=== PATIENT | female | born 1995 | race Caucasian/White ===

== ENCOUNTER 2019-10-05 15:11 | Emergency (ER) | payer BC ==
[2019-10-05] MEDS ORDERED: ACETAMINOPHEN 325 MG TABLET PO ONE (15:47)
--- NOTE | 2019-10-05 15:49 | ER Document Report ---
HPI - HPI Patient complains to provider of: sore throat Time Seen by Provider: 10/05/19 15:43 Onset: This morning Onset/Duration: Gradual Quality of pain: Achy Pain Level: 3 Context: Patient presents complaint of sore throat that started today. Patient denies any fever or cough. No nausea or vomiting. Associated Symptoms: Sore throat. denies: Nonproductive cough, Earache, Fever Exacerbated by: Denies Relieved by: Denies Similar symptoms previously: Yes Recently seen / treated by doctor: No - ROS ROS below otherwise negative: Yes Systems Reviewed and Negative: Yes All other systems reviewed and negative - CONSTITUTIONAL Constitutional: DENIES: Fever, Chills - EENT EENT: REPORTS: Sore Throat. DENIES: Ear Pain, Congestion - CARDIOVASCULAR Cardiovascular: DENIES: Chest pain - RESPIRATORY Respiratory: DENIES: Trouble Breathing, Coughing - GASTROINTESTINAL Gastrointestinal: DENIES: Nausea, Patient vomiting, Diarrhea - DERM Skin Color: Normal Skin Problems: None Past Medical History - General Information source: Patient - Social History Smoking Status: Never Smoker Frequency of alcohol use: Occasional Drug Abuse: None Occupation: Patient access Family History: Reviewed & Not Pertinent - Past Medical History Cardiac Medical History: Reports: Hx Hypertension Past Surgical History: Reports: Hx Oral Surgery, Hx Orthopedic Surgery Vertical Provider Document - CONSTITUTIONAL Agree With Documented VS: Yes Exam Limitations: No Limitations General Appearance: WD/WN, No Apparent Distress - HEENT HEENT: Atraumatic, Normocephalic, Pharyngeal Exudate, Pharyngeal Tenderness, Pharyngeal Erythema - NECK Neck: Lymphadenopathy-Left, Lymphadenopathy-Right - RESPIRATORY Respiratory: Breath Sounds Normal, No Respiratory Distress - CARDIOVASCULAR Cardiovascular: Regular Rate, Regular Rhythm - BACK Back: Normal Inspection - MUSCULOSKELETAL/EXTREMETIES Musculoskeletal/Extremeties: MAEW - NEURO Level of Consciousness: Awake, Alert, Appropriate Motor/Sensory: No Motor Deficit - DERM Integumentary: Warm, Dry, No Rash Course - Re-evaluation Re-evalutation: 10/05/19 16:57 Patient rapid strep test positive, no concern for [employer]. Patient able to manage oral secretions. Good return precautions discussed with patient. - Vital Signs Vital signs: Temp Pulse Resp BP Pulse Ox 98.3 F 104 H 15 143/101 H 94 10/05/19 15:17 10/05/19 15:17 10/05/19 15:17 10/05/19 15:17 10/05/19 15:17 - Laboratory Laboratory results interpreted by me: 10/05/19 16:57 Labs- Entire Visit 10/05/19 10/05/19 16:08 16:21 Monotest NEGATIVE Group A Strep Rapid POSITIVE Discharge - Discharge Clinical Impression: Strep pharyngitis Condition: Stable Disposition: HOME, SELF-CARE Instructions: Acetaminophen, Strep Throat ([facility]), Antibiotic Shot ([facility]), Steroid Medication Additional Instructions: Return immediately for any new or worsening symptoms Followup with your primary care provider, call tomorrow to make a followup appointment You may take Tylenol [id number] as needed for pain relief Increase oral fluids and stay well-hydrated Forms: Return to Work Referrals: SANTOSH MANLEY PA-C [NO LOCAL MD] - Follow up as needed
[2019-10-05] MEDS ORDERED: DEXAMETHASONE 4 MG TABLET PO ONE (16:56)
[2019-10-05] MEDS ORDERED: PENICILLIN G BENZATHINE 1.2 MILLION UNIT/2 ML DISP.SYRIN IM ONE (16:56)
[2019-10-05 17:18] VITALS: BP 127/87
== END 2019-10-05 17:28 | disposition home or self-care (01) ==
LOC: ER 15:11
DX: J02.0 Streptococcal pharyngitis (principal)
CPT/HCPCS: 99283; 96372; 36415; 87880; 86308; J8540; J0561

== ENCOUNTER 2020-04-11 11:12 | Inpatient (IN) | payer BC ==
[2020-04-11] MEDS ORDERED: NORMAL SALINE 1000 ML 1,000 ML IV ONE (11:49)
[2020-04-11] MEDS ORDERED: RINGERS SOLUTION,LACTATED 2,000 ML IV ONE (11:51)
--- NOTE | 2020-04-11 11:53 | ER Document Report ---
ED Medical Screen (RME) - General Chief Complaint: Abdominal Pain Stated Complaint: LOW BACK PAIN,ABDOMINAL PAIN Time Seen by Provider: 04/11/20 11:44 Primary Care Provider: SANTOSH MANLEY PA-C [Primary Care Provider] - Follow up as needed Notes: Patient is a 24-year-old female with a history of hypertension who presents emergency department with a chief complaint of left sided abdominal pain. Patient states that her symptoms started a couple days ago and got progressively worse. Denies any nausea, vomiting, or diarrhea. States that she has a slight sore throat. Denies any abdominal surgeries in the past. Exam: Tender left mid abdomen. I have greeted and performed a rapid initial assessment of this patient. A comprehensive ED assessment and evaluation of the patient, analysis of test results and completion of medical decision making process will be conducted by an additional ED providers. - Related Data Allergies/Adverse Reactions: azithromycin Allergy (Verified 04/11/20 11:44) Home Medications: LABETOLOL. LISINOPRIL Past Medical History - Social History Chew tobacco use (# tins/day): No Frequency of alcohol use: Social Drug Abuse: None - Past Medical History Cardiac Medical History: Reports: Hx Hypertension Past Surgical History: Reports: Hx Oral Surgery, Hx Orthopedic Surgery Physical Exam - Vital signs Vitals: Temp Pulse Resp BP Pulse Ox 98.2 F 152 H 18 141/77 H 100 04/11/20 11:18 04/11/20 11:18 04/11/20 11:18 04/11/20 11:18 04/11/20 11:18 Course - Vital Signs Vital signs: Temp Pulse Resp BP Pulse Ox 98.2 F 152 H 18 141/77 H 100 04/11/20 11:18 04/11/20 11:18 04/11/20 11:18 04/11/20 11:18 04/11/20 11:18 Doctor's Discharge - Discharge Referrals: SANTOSH MANLEY PA-C [Primary Care Provider] - Follow up as needed
[2020-04-11 12:37] LABS: ABSOLUTE LYMPHOCYTES (AUTO) 1.5 10^3/uL (0.5-4.7); ABSOLUTE MONOCYTES (AUTO) 0.9 10^3/uL (0.1-1.4); ABSOLUTE NEUT (AUTO) 19.1 10^3/uL (1.7-8.2); HEMATOCRIT 30.8 % (36.0-47.0); HEMOGLOBIN 10.8 g/dL (12.0-15.5); LYMPHOCYTES % (AUTO) 6.9 % (13-45); MEAN CORPUSCULAR HEMOGLOBIN 29.5 pg (27.0-33.4); MEAN CORPUSCULAR HGB CONC 35.2 g/dL (32.0-36.0); MEAN CORPUSCULAR VOLUME 84 fl (80-97); MONOCYTES % (AUTO) 4.2 % (3-13); PLATELET COUNT 310 10^3/uL (150-450); RED BLOOD COUNT 3.68 10^6/uL (3.72-5.28); RED CELL DISTRIBUTION WIDTH 13.9 % (11.5-14.0); SEGMENTED NEUTROPHILS % (AUTO) 88.9 % (42-78); TOTAL CELLS COUNTED % (AUTO) 100 %
[2020-04-11 12:42] LABS: WHITE BLOOD COUNT 21.5 10^3/uL (4.0-10.5)
[2020-04-11 13:01] LABS: ALBUMIN 4.2 g/dL (3.5-5.0); ALKALINE PHOSPHATASE 71 U/L (38-126); ANION GAP 12 (5-19); ASPARTATE AMINO TRANSFERASE 19 U/L (14-36); BILIRUBIN,DIRECT 0.2 mg/dL (0.0-0.4); BILIRUBIN,TOTAL 0.6 mg/dL (0.2-1.3); BLOOD UREA NITROGEN 18 mg/dL (7-20); CALCIUM 9.1 mg/dL (8.4-10.2); CARBON DIOXIDE 22 mmol/L (22-30); CHLORIDE 100 mmol/L (98-107); GLUCOSE 129 mg/dL (75-110); POTASSIUM 4.5 mmol/L (3.6-5.0); TOTAL PROTEIN 7.1 g/dL (6.3-8.2)
[2020-04-11 13:05] LABS: APPEARANCE,URINE CLOUDY; BILIRUBIN,URINE NEGATIVE (NEGATIVE); COLOR,URINE AMBER; GLUCOSE, URINE NEGATIVE (NEGATIVE); KETONES,URINE TRACE mg/dL (NEGATIVE); LEUKOCYTE ESTERASE,URINE TRACE (NEGATIVE); NITRITE,URINE NEGATIVE (NEGATIVE); PROTEIN,URINE 100 mg/dL (NEGATIVE); URINE SPECIFIC GRAVITY 1.027
--- NOTE | 2020-04-11 13:08 | EKG REPORT ---
SEVERITY:- BORDERLINE ECG - SINUS TACHYCARDIA LA ABNORMALITY : Confirmed by: Hiram Davis MD 11-Apr-2020 13:07:58
[2020-04-11] MEDS ORDERED: PIPERACILLIN/TAZOBACTAM 3.375 GM VIAL IV ONE (13:14)
[2020-04-11 13:33] LABS: VENOUS BLOOD BASE EXCESS -3.6 mmol/L; VENOUS BLOOD HCO3 21.6 mmol/L (20-32); VENOUS BLOOD PCO2 39.9 mmHg (35-63); VENOUS BLOOD PH 7.35 (7.30-7.42)
[2020-04-11 13:53] LABS: A TYPE INFLUENZA AG NEGATIVE (NEGATIVE); B INFLUENZA AG NEGATIVE (NEGATIVE)
--- NOTE | 2020-04-11 14:11 | RADIOLOGY REPORT (SQ) ---
EXAM DESCRIPTION: CT ABD/PELVIS WITH IV ONLY IMAGES COMPLETED DATE/TIME: 04/11/2020 1:41 pm REASON FOR STUDY: rlq pain COMPARISON: None. TECHNIQUE: CT scan of the abdomen and pelvis performed using helical scanning technique with dynamic intravenous contrast injection. No oral contrast. Images reviewed with lung, soft tissue, and bone windows. Reconstructed coronal and sagittal MPR images reviewed. Delayed images for evaluation of the urinary system also acquired. All images stored on PACS. All CT scanners at this facility use dose modulation, iterative reconstruction, and/or weight based d osing when appropriate to reduce radiation dose to as low as reasonably achievable (ALARA). [facility]: Dose Right [facility]: CareDose [facility]: Dose Right [facility]: Teradose 4D [facility]: Fanzter CONTRAST TYPE AND DOSE: Contrast/concentration: Isovue 350.00 mmol/ml; Total Contrast Delivered: 78. 0 ml; Total Saline Delivered: 45.0 ml RENAL FUNCTION: Creatinine 0.8 milligrams/deciliter. RADIATION DOSE: CT Rad equipment meets quality standard of care and radiation dose reduction techniq ues were employed. CTDIvol: 6.9 - 9.7 mGy. DLP: 962 mGy-cm. LIMITATIONS: None. FINDINGS: LOWER CHEST: No acute findings. LIVER: The morphology of the liver is noncirrhotic. The portal veins are patent. There is no hepati c mass. SPLEEN: No splenomegaly or splenic mass. PANCREAS: No acute gross abnormality of the pancreas. GALLBLADDER: No abnormality that is apparent on CT. ADRENAL GLANDS: No mass or asymmetry. RIGHT KIDNEY AND URETER: No solid mass, hydronephrosis, nephrolithiasis, hydroureter or ureterolithia sis. LEFT KIDNEY AND URETER: No solid mass, hydronephrosis, nephrolithiasis, hydroureter or ureterolithias is. AORTA AND VESSELS: No aneurysm of the abdominal aorta. There is a variant accessory right inferior h epatic vein. RETROPERITONEUM: No retroperitoneal adenopathy, hemorrhage or mass. BOWEL AND PERITONEAL CAVITY: There is a small amount of free intraperitoneal fluid ; the attenuation of the fluid in the pelvis measures 56 Hounsfield units. There is no bowel obstruction, bowel wall t hickening or pericolonic/ perienteric inflammation. There is no mesenteric adenopathy or mass. APPENDIX: Unable to identify the appendix. PELVIS: There is a 2.6 x 1.9 cm ovoid cystic lesion in the left adnexum with a thin high attenuation/ enhancing rim (image 67 of series 3). The urinary bladder is contracted. ABDOMINAL WALL: No mass or hernia. BONES: No acute findings. OTHER: No other finding. IMPRESSION: 1. Small amount of free intraperitoneal fluid ; the attenuation of the fluid in the pel vis measures 56 Hounsfield units suggesting that it is complex and perhaps hemorrhagic. 2. 2.6 x 1.9 cm ovoid cystic lesion in the left adnexum with a thin high attenuation/enhancing rim ( image 67 of series 3). An adnexal lesion and free intraperitoneal fluid represent 2 of the 3 compone nts of [place] syndrome. Consider correlation with an pelvic transvaginal US. 3. Unable to identify the appendix. TECHNICAL DOCUMENTATION: JOB ID: [id number] Quality ID # [id number]: Final reports with documentation of one or more dose reduction techniques (e.g., Au tomated exposure control, adjustment of the mA and/or kV according to patient size, use of iterative reconstruction technique) 2010 [employer]- All Rights Reserved Reading location - IP/workstation name: [email or web address]
[2020-04-11] MEDS ORDERED: MORPHINE SULFATE 10 MG/ML INJ IV ONE ×2 (14:21→17:13)
[2020-04-11] MEDS ORDERED: ONDANSETRON HCL INJ/PF 4 MG/2 ML SDV IV ONE ×2 (14:42→17:58)
--- NOTE | 2020-04-11 16:00 | RADIOLOGY REPORT (SQ) ---
EXAM DESCRIPTION: U/S NON OB PEL TV W/DOPPLER IMAGES COMPLETED DATE/TIME: 04/11/2020 2:32 pm REASON FOR STUDY: ascites/pain. COMPARISON: CT abdomen and pelvis same date. TECHNIQUE: Dynamic and static grayscale images acquired of the pelvis via transvaginal approach and recorded on PACS. Additional selected color Doppler and spectral images recorded. LIMITATIONS: None. FINDINGS: UTERUS: Contour normal. No mass. ENDOMETRIAL STRIPE: No focal or generalized thickening. No masses. CERVIX: Long and closed. No nabothian cysts. RIGHT OVARY AND DOPPLER: Normal size. Normal peripheral follicles. No worrisome masses. Normal kiarra rial vascular flow without evidence for torsion. LEFT OVARY AND DOPPLER: The left ovary is upper limits of normal in size measuring 4 x 4 x 4.3 cm for total left ovarian volume of 36 mL. There is a dominant ovarian follicle within the left ovary chaparrita uring 2.3 x 1.5 x 2.1 cm with simple appearance. The remaining left ovarian stroma is mildly complex . No definitive solid mass. There is free fluid in the left adnexa. Color and spectral Doppler mackenzie ging demonstrates normal vascular flow to the left ovary. FREE FLUID: There is complex free fluid in the left adnexa and posterior cul-de-sac. OTHER: No other significant finding. MEASUREMENTS: UTERUS: 9 x 5 x 5 cm ENDOMETRIAL STRIPE: 8 mm RIGHT OVARY: 3.2 x 2 x 2.8 cm LEFT OVARY: 4 x 4 x 4.3 cm IMPRESSION: Enlarged left ovary with dominant left ovarian cyst. Complex free fluid in the left adn exa and pelvic cul-de-sac. Findings may represent a recently ruptured hemorrhagic ovarian follicle. No definite left ovarian mass is identified. No evidence of ovarian torsion. A follow-up pelvic ul trasound in 4- 6 weeks is recommended to confirm resolution of the left ovarian cyst. TECHNICAL DOCUMENTATION: JOB ID: [id number] [employer]- All Rights Reserved Rev Reading location - IP/workstation name: [email or web address]
--- NOTE | 2020-04-11 18:17 | ER Document Report ---
ED General - General Chief Complaint: Abdominal Pain Stated Complaint: LOW BACK PAIN,ABDOMINAL PAIN Time Seen by Provider: 04/11/20 11:44 Primary Care Provider: SANTOSH MANLEY PA-C [Primary Care Provider] - Follow up as needed Mode of Arrival: Ambulatory Information source: Patient - [facility] Notes: Patient presents with abdominal pain. She states is greatest in the right lower quadrant. It is sharp and severe. Is worse with lying flat and better with sitting up. Is also worse with movement. Patient denies any vaginal symptoms. She does not believe she is . She has had no dysuria or urgency with urination. She states she has had no appetite since yesterday. She states that her throat has been "scratchy". She does not recall any fevers. No real vomiting or diarrhea but some nausea. She denies any trauma. She states she is felt slightly dizzy and lightheaded. - Related Data Allergies/Adverse Reactions: azithromycin Allergy (Verified 04/11/20 11:44) Home Medications: LABETOLOL. LISINOPRIL Past Medical History - General Information source: Patient - Social History Smoking Status: Never Smoker Chew tobacco use (# tins/day): No Frequency of alcohol use: Social Drug Abuse: None Family History: Reviewed & Not Pertinent Patient has homicidal ideation: No - Past Medical History Cardiac Medical History: Reports: Hx Hypertension Past Surgical History: Reports: Hx Oral Surgery, Hx Orthopedic Surgery Review of Systems - Review of Systems Constitutional: Malaise, Weakness Cardiovascular: denies: Chest pain, Palpitations Respiratory: denies: Cough, Short of breath -: Yes All other systems reviewed and negative Physical Exam - Vital signs Vitals: Temp Pulse Resp BP Pulse Ox 98.2 F 152 H 18 141/77 H 100 04/11/20 11:18 04/11/20 11:18 04/11/20 11:18 04/11/20 11:18 04/11/20 11:18 Interpretation: Tachycardic - General General appearance: Appears well, Alert - HEENT Head: Normocephalic, Atraumatic Eyes: Normal Pupils: PERRL Pharynx: Erythema, Exudate, Other - Posterior pharynx and tonsils are hyperemic with what appears to be a petechial rash on the soft palate. Patient also has bilateral pustules on the tonsils. - Respiratory Respiratory status: No respiratory distress Chest status: Nontender Breath sounds: Normal Chest palpation: Normal - Cardiovascular Rhythm: Tachycardia Heart sounds: Normal auscultation Murmur: No - Abdominal Inspection: Normal Distension: Distended Bowel sounds: Hypoactive Tenderness: Tender, Guarding, Rebound - Back Back: Normal, Nontender - Extremities General upper extremity: Normal inspection, Nontender, Normal color, Normal ROM, Normal temperature General lower extremity: Normal inspection, Nontender, Normal color, Normal ROM, Normal temperature, Normal weight bearing. No: Viviana's sign - Neurological Neuro grossly intact: Yes Cognition: Normal Orientation: AAOx4 Stefano Coma Scale Eye Opening: Spontaneous [place] Coma Scale Verbal: Oriented [place] Coma Scale Motor: Obeys Commands [place] Coma Scale Total: 15 Speech: Normal Motor strength normal: LUE, RUE, LLE, RLE Sensory: Normal - Psychological Associated symptoms: Normal affect, Normal mood - Skin Skin Temperature: Warm Skin Moisture: Dry Skin Color: Normal Course - Re-evaluation Re-evalutation: 04/11/20 18:22 Patient arrives with a significant elevated heart rate. Immediately IV fluids were started patient's heart rate at this time is come down. She has never been hypotensive. I did do a bedside ultrasound and saw free fluid mainly around the spleen. Therefore I sent the patient for an immediate CT scan which showed the patient to have complex fluid in the abdomen. The appendix was not visualized. Patient also had non-distinct enlargement of the left adnexal area. An ultrasound showed the free fluid in the pelvis as well as an enlarged left adnexal area. I have counseled the surgeon Dr. Raza. He has seen and examined the patient. At this time it is felt best the patient received admission for observation and serial exams as well as for antibiotics. It is possible patient has some type of bacterial peritonitis possibly seeded from the pharynx and tonsils as patient has a positive strep test. It is also possible the patient has an occult condition that is con commitment in the abdomen but not related to the pharynx which is why admission for further evaluation would also be prudent. - Vital Signs Vital signs: Temp Pulse Resp BP Pulse Ox 98.2 F 152 H 13 129/96 H 100 04/11/20 11:18 04/11/20 11:18 04/11/20 13:02 04/11/20 13:01 04/11/20 13:05 - Laboratory Result Diagrams: 04/11/20 12:13 04/11/20 12:13 Laboratory results interpreted by me: 04/11/20 04/11/20 04/11/20 12:13 12:13 12:13 WBC 21.5 H RBC 3.68 L Hgb 10.8 L Hct 30.8 L Lymph % (Auto) 6.9 L Absolute Neuts (auto) 19.1 H Seg Neutrophils % 88.9 H Sodium 134.1 L Glucose 129 H Urine Protein 100 H Urine Ketones TRACE H Urine Urobilinogen 2.0 H Ur Leukocyte Esterase TRACE H Urine Ascorbic Acid 40 H - Diagnostic Test Radiology reviewed: Image reviewed, Reports reviewed Discharge - Discharge Clinical Impression: Strep throat, Peritonitis (acute) generalized, Hemoperitoneum (nontraumatic) Ascites Qualifiers: Ascites type: other type Qualified Code(s): R18.8 - Other ascites Condition: Serious Disposition: ADMITTED INPATIENT Admitting Provider: Mark (Hospitalist) Unit Admitted: IMCU Referrals: SANTOSH MANLEY PA-C [Primary Care Provider] - Follow up as needed
[2020-04-11] MEDS ORDERED: MAG HYDROX/AL HYDROX/SIMETH SUSP 30 ML UDCUP PO PRN (20:02)
[2020-04-11] MEDS ORDERED: MAGNESIUM HYDROXIDE SUSP 30 ML UDCUP PO PRN (20:02)
[2020-04-11] MEDS ORDERED: MELATONIN 5 MG TABLET PO PRN (20:06)
[2020-04-11] MEDS ORDERED: ACETAMINOPHEN 650 MG SUPP.RECT PR PRN (20:06)
[2020-04-11] MEDS ORDERED: MORPHINE SULFATE 10 MG/ML INJ IV PRN ×2 (20:06→20:11)
[2020-04-11] MEDS ORDERED: HYDRALAZINE HCL INJ/PF 20 MG/1 ML SDV IV PRN (20:06)
[2020-04-11] MEDS ORDERED: GUAIFENESIN SYRP 200 MG/10 ML UDC PO PRN (20:06)
[2020-04-11] MEDS ORDERED: LORAZEPAM INJ 2 MG/1 ML VIAL IV PRN (20:06)
--- NOTE | 2020-04-11 20:23 | PDOC CONSULTATION ---
Consultation Consult Date: 04/11/20 Provider Consulted: SURGICAL SURGICALIST MD Consult reason:: Abdominal pain, free fluid History of Present Illness Admission Date/PCP: SANTOSH MANLEY PA-C Patient complains of: Left-sided abdominal pain History of Present Illness: KENDRICK MOORE is a 24 year old female with a 1 day history of new onset left- sided abdominal pain. Over approximately 12 hours the pain intensified and spread throughout the abdomen. She now has tenderness in all 4 quadrants, but is worse in the left mid abdomen. The patient reports a sore/scratchy throat for the last 3 days. She denies any history of trauma. She is not currently taking oral contraceptives. She has never had pain like this before. She rates it at 8 out of 10. It is sharp and stabbing. It radiates into her back. She denies nausea, vomiting, chest pain, melena, hematochezia, hematemesis, blurry vision. She does report mild shortness of breath, sore throat, pain with deep inspiration, edema and orthostasis. Past Medical History Cardiac Medical History: Reports: Hypertension Past Surgical History Past Surgical History: Reports: Orthopedic Surgery - Bunionectomy Social History Smoking Status: Never Smoker Electronic Cigarette use?: No Hx Recreational Drug Use: No Hx Prescription Drug Abuse: No Family History Family History: Reviewed & Not Pertinent Parental Family History Reviewed: Yes Children Family History Reviewed: Yes Sibling(s) Family History Reviewed.: Yes Medication/Allergy Allergies/Adverse Reactions: azithromycin Allergy (Verified 04/11/20 11:44) Review of Systems Constitutional: ABSENT: anorexia, chills, fatigue, fever(s), headache(s), night sweats Eyes: ABSENT: visual disturbances Ears: ABSENT: hearing changes Nose, Mouth, and Throat: PRESENT: sore throat. ABSENT: headache(s) Cardiovascular: ABSENT: chest pain Respiratory: PRESENT: dyspnea, other - Pain with deep inspiration Gastrointestinal: PRESENT: abdominal pain. ABSENT: constipation, diarrhea, hematemesis, hematochezia, melena, nausea, vomiting Genitourinary: ABSENT: dysuria Integumentary: ABSENT: pruritus, rash Neurological: PRESENT: dizziness - With standing. ABSENT: confusion, convulsions Psychiatric: ABSENT: anxiety, depression Hematologic/Lymphatic: ABSENT: easy bleeding, easy bruising Physical Exam Vital Signs: Temp Pulse Resp BP Pulse Ox 98.2 F 152 H 13 129/96 H 100 04/11/20 11:18 04/11/20 11:18 04/11/20 13:02 04/11/20 13:01 04/11/20 13:05 Intake & Output 04/10/20 04/11/20 04/12/20 06:59 06:59 06:59 Intake Total 1999 Balance 1999 Weight 68.039 kg General appearance: PRESENT: no acute distress, cooperative Head exam: PRESENT: atraumatic, normocephalic Eye exam: PRESENT: EOMI, PERRLA. ABSENT: scleral icterus Mouth exam: PRESENT: moist, other - Injected mucosa and erythema of the pharynx Throat exam: PRESENT: post pharyngeal erythema, tonsillogmegaly Neck exam: ABSENT: meningismus, tenderness, thyromegaly, tracheal deviation, tracheostomy Respiratory exam: PRESENT: unlabored. ABSENT: tachypnea, wheezes Cardiovascular exam: ABSENT: tachycardia GI/Abdominal exam: PRESENT: guarding - Voluntary guarding left lower quadrant, soft, tenderness - All 4 abdominal quadrants Rectal exam: PRESENT: deferred Extremities exam: ABSENT: clubbing Musculoskeletal exam: ABSENT: deformity Neurological exam: PRESENT: alert, awake, oriented to person, oriented to place, oriented to time, oriented to situation, CN II-XII grossly intact Psychiatric exam: ABSENT: agitated, anxious, depressed Focused psych exam: ABSENT: delusional Skin exam: ABSENT: cyanosis, erythema, jaundice Results Laboratory Results: 04/11/20 12:13 04/11/20 12:13 04/11/20 04/11/20 04/11/20 12:13 12:13 12:13 WBC 21.5 H RBC 3.68 L Hgb 10.8 L Hct 30.8 L MCV 84 MCH 29.5 MCHC 35.2 RDW 13.9 Plt Count 310 Seg Neutrophils % 88.9 H VBG pH VBG pCO2 VBG HCO3 VBG Base Excess Sodium 134.1 L Potassium 4.5 Chloride 100 Carbon Dioxide 22 Anion Gap 12 BUN 18 Creatinine 0.80 Est GFR ( Amer) > 60 Glucose 129 H Calcium 9.1 Total Bilirubin 0.6 AST 19 Alkaline Phosphatase 71 Total Protein 7.1 Albumin 4.2 Lipase 43.0 Serum HCG, Qual Urine Color CARRIE Urine Appearance CLOUDY Urine pH 5.0 Ur Specific [place] 1.027 Urine Protein 100 H Urine Glucose (UA) NEGATIVE Urine Ketones TRACE H Urine Blood NEGATIVE Urine Nitrite NEGATIVE Ur Leukocyte Esterase TRACE H Urine WBC (Auto) 16 Urine RBC (Auto) 2 Blood Type Antibody Screen 04/11/20 04/11/20 04/11/20 12:13 13:05 13:05 WBC RBC Hgb Hct MCV MCH MCHC RDW Plt Count Seg Neutrophils % VBG pH 7.35 VBG pCO2 39.9 VBG HCO3 21.6 VBG Base Excess -3.6 Sodium Potassium Chloride Carbon Dioxide Anion Gap BUN Creatinine Est GFR ( Amer) Glucose Calcium Total Bilirubin AST Alkaline Phosphatase Total Protein Albumin Lipase Serum HCG, Qual NEGATIVE Urine Color Urine Appearance Urine pH Ur Specific [place] Urine Protein Urine Glucose (UA) Urine Ketones Urine Blood Urine Nitrite Ur Leukocyte Esterase Urine WBC (Auto) Urine RBC (Auto) Blood Type Cancelled Antibody Screen Cancelled 04/11/20 13:53 WBC RBC Hgb Hct MCV MCH MCHC RDW Plt Count Seg Neutrophils % VBG pH VBG pCO2 VBG HCO3 VBG Base Excess Sodium Potassium Chloride Carbon Dioxide Anion Gap BUN Creatinine Est GFR ( Amer) Glucose Calcium Total Bilirubin AST Alkaline Phosphatase Total Protein Albumin Lipase Serum HCG, Qual Urine Color Urine Appearance Urine pH Ur Specific [place] Urine Protein Urine Glucose (UA) Urine Ketones Urine Blood Urine Nitrite Ur Leukocyte Esterase Urine WBC (Auto) Urine RBC (Auto) Blood Type A POSITIVE Antibody Screen NEGATIVE Impressions: Abdomen/Pelvis CT 04/11/20 13:10 IMPRESSION: 1. Small amount of free intraperitoneal fluid ; the attenuation of the fluid in the pelvis measures 56 Hounsfield units suggesting that it is complex and perhaps hemorrhagic. 2. 2.6 x 1.9 cm ovoid cystic lesion in the left adnexum with a thin high attenuation/enhancing rim (image 67 of series 3). An adnexal lesion and free intraperitoneal fluid represent 2 of the 3 components of [place] syndrome. Consider correlation with an pelvic transvaginal US. 3. Unable to identify the appendix. Transvaginal US 04/11/20 14:04 IMPRESSION: Enlarged left ovary with dominant left ovarian cyst. Complex free fluid in the left adnexa and pelvic cul-de-sac. Findings may represent a recently ruptured hemorrhagic ovarian follicle. No definite left ovarian mass is identified. No evidence of ovarian torsion. A follow-up pelvic ultrasound in 4- 6 weeks is recommended to confirm resolution of the left ovarian cyst. Assessment & Plan - Diagnosis (1) Abdominal pain Qualifiers: Abdominal location: left lower quadrant Qualified Code(s): R10.32 - Left l ower quadrant pain Is this a current diagnosis for this admission?: Yes (2) Acute streptococcal pharyngitis Is this a current diagnosis for this admission?: Yes (3) Free fluid in pelvis Is this a current diagnosis for this admission?: Yes - Plan Summary Plan Summary: 24-year-old female with abdominal pain, leukocytosis, strep pharyngitis, and anemia. The source of her abdominal pain is somewhat unclear at this time. She does have free fluid in the abdomen, which appears to be more dense than simple fluid. It could represent old hemorrhage (the majority of the fluid is accumulating around the spleen, and the patient is anemic at 10.8). Also of note is a cystic lesion of the left ovary. Please note that the patient does not appear to be actively bleeding on the CT scan. It also could represent infected fluid (spontaneous streptococcal peritonitis). I have reviewed her CT scan at length. I have reviewed the images and the report. Her appendix does not appear to be involved with the intra-abdominal fluid. I do not believe the patient is exhibiting signs or symptoms of appendicitis. At this time, I do not believe she would benefit from surgical intervention. I have discussed the case with Dr. Roberson. I have used the ultrasound to try to find an area of isolated fluid. Unfortunately, there is not enough fluid for paracentesis. Would consider CT- guided aspiration of the fluid for Gram stain, and cell count. This may help secure diagnosis. In the meantime, continue antibiotics. I have discussed the case with Liz Lambert, who has agreed to evaluate the patient for possible admission. Surgery will follow this patient in consultation. If her symptoms change, it is conceivable that she could require operative intervention. We will monitor her very closely.
[2020-04-11 20:51] LABS: ABSOLUTE RETICS # 0.056 10^6/uL (0.028-0.122); RETICULOCYTE COUNT (AUTO) 1.49 % (0.66-2.85)
[2020-04-11 20:53] LABS: IRON(TIBC) 34.3 ug/dL (37-170)
[2020-04-11] MEDS: HEPARIN SOD (PORCINE) 5,000 UNIT/ML 1 ML VIAL SUBCUT SCH (21:46)
[2020-04-11] MEDS: FAMOTIDINE INJ/PF 20 MG/2 ML SDV IV SCH (21:46)
[2020-04-11] MEDS: DEXTROSE 5%-LACTATED RINGERS 1,000 ML IV PRN (21:46)
[2020-04-11] MEDS ORDERED: CEFEPIME 2 GM/D5W RTU 2 GM/50 ML RTUPB IV SCH (22:00)
[2020-04-11] MEDS ORDERED: AMPICILLIN SOD/SULBACTAM 3 GM VIAL IV SCH (22:00)
[2020-04-12] MEDS ORDERED: AMPICILLIN SOD/SULBACTAM 3 GM VIAL ONE (00:47)
[2020-04-12] MEDS: AMPICILLIN SODIUM/SULBACTAM NA 3 GM in NORMAL SALINE 100 ML IV SCH ×5 (00:59→23:15)
[2020-04-12] MEDS: MORPHINE SULFATE 10 MG/ML INJ IV PRN ×6 (01:05→20:00)
--- NOTE | 2020-04-12 01:15 | PDOC H&P ---
History of Present Illness Admission Date/PCP: 04/11/20 18:32 SANTOSH MANLEY PA-C Patient complains of: Abdominal pain History of Present Illness: KENDRICK MOORE is a 24 year old female who presents to the emergency room with a 2 day history of abdominal pain. She admits gradually worsening sharp stabbing abdominal pain with radiation to her left flank/lower back. Her pain is most intense in the left lower quadrant, is now severe, is improved by sitting up or lying in the position, and is made worse by lying flat or movement/walking. Her abdominal pain has been accompanied by nausea with a decreased appetite and associated with a progressively worsening sore throat, abdominal bloating, malaise, generalized weakness and lightheadedness. She denies other associated or accompanying signs and symptoms. She denies prior similar episodes. She has not identified any additional aggravating or ameliorating factors for her abdominal pain. In the emergency room she was found to have a positive rapid strep screen with a leukocytosis of 20,000+ and splenomegaly. She was seen in consultation in the emergency room by the surgical team who recommended admission for further observation and evaluation. Past Medical History Cardiac Medical History: Reports: Hypertension Denies: Coronary Artery Disease, DVT, Hyperlipidema, Pulmonary Embolism Pulmonary Medical History: Denies: Asthma, Chronic Obstructive Pulmonary Disease (COPD) EENT Medical History: Denies: Cataracts, Ears - Hearing aids Neurological Medical History: Denies: Multiple Sclerosis, Seizures Endocrine Medical History: Reports: Other - Menorrhagia Denies: Diabetes Mellitus Type 1, Hyperthyroidism, Hypothyroidism Renal/ Medical History: Denies: Chronic Kidney Disease, Nephrolithiasis Malignancy Medical History: Reports: None GI Medical History: Denies: Cirrhosis, Hepatitis, Peptic Ulcer Disease Musculoskeltal Medical History: Denies: Arthritis, Fibromyalgia Skin Medical History: Denies: Eczema, Psoriasis Psychiatric Medical History: Denies: Alcohol Dependency, Substance Abuse, Tobacco Dependency Traumatic Medical History: Reports: None Hematology: Denies: Anemia, Bleeding Tendencies Infectious Medical History: Reports: None Past Surgical History Past Surgical History: Reports: Orthopedic Surgery - Bilateral bunionectomies, Other - Oral surgery: [place] tooth extractions Social History Information Source: Patient Lives with: Alone Smoking Status: Never Smoker Electronic Cigarette use?: No Frequency of Alcohol Use: Occasional Hx Recreational Drug Use: No Drugs: None Hx Prescription Drug Abuse: No - Advance Directive Resuscitation Status: Full Code Surrogate healthcare decision maker:: Danii Moore Family History Family History: Hypertension, Malignancy, Thyroid Disfunction. denies: CAD, DM Parental Family History Reviewed: Yes Children Family History Reviewed: No Sibling(s) Family History Reviewed.: Yes Medication/Allergy Home Medications: Labetalol HCl 100 mg PO BID 04/11/20 Allergies/Adverse Reactions: azithromycin Allergy (Verified 04/11/20 11:44) Review of Systems Constitutional: PRESENT: as per HPI, anorexia, weakness, other - Malaise. ABSENT: chills, fever(s) Eyes: ABSENT: visual disturbances, other - Eye pain Ears: ABSENT: hearing changes, other - Ear pain Nose, Mouth, and Throat: PRESENT: as per HPI, sore throat. ABSENT: headache(s) Cardiovascular: PRESENT: other - Lightheadedness. ABSENT: chest pain, palpitations Respiratory: ABSENT: cough, dyspnea Gastrointestinal: PRESENT: as per HPI, abdominal pain, nausea. ABSENT: constipation, diarrhea, vomiting Musculoskeletal: ABSENT: deformity, joint swelling Integumentary: ABSENT: pruritus, rash Neurological: PRESENT: other - Lightheadedness. ABSENT: confusion, convulsions, focal weakness, memory loss, syncope Psychiatric: ABSENT: anxiety, depression Endocrine: ABSENT: cold intolerance, heat intolerance Hematologic/Lymphatic: ABSENT: easy bleeding, easy bruising Allergic/Immunologic: ABSENT: seasonal rhinorrhea Physical Exam Vital Signs: Temp Pulse Resp BP Pulse Ox 98.2 F 152 H 13 129/96 H 100 04/11/20 11:18 04/11/20 11:18 04/11/20 13:02 04/11/20 13:01 04/11/20 13:05 Intake & Output 04/09/20 04/10/20 04/11/20 23:59 23:59 23:59 Intake Total 1999 Balance 1999 Weight 68.039 kg General appearance: PRESENT: cooperative, mild distress - Secondary to abdominal pain Head exam: PRESENT: atraumatic, normocephalic Eye exam: PRESENT: conjunctiva pink. ABSENT: conjunctival injection, scleral icterus Ear exam: PRESENT: normal external ear exam. ABSENT: bleeding, drainage Mouth exam: PRESENT: dry mucosa, neck supple, other - Bilateral tonsillar edema with purulent exudate Neck exam: PRESENT: lymphadenopathy - Bilateral anterior 2+ cervical lymphadenopathy, tenderness - Anterior cervical lymphadenopathy. ABSENT: JVD, thyromegaly, tracheal deviation Respiratory exam: PRESENT: clear to auscultation [place], symmetrical, unlabored Cardiovascular exam: PRESENT: RRR. ABSENT: clicks, gallop, rubs Pulses: PRESENT: normal radial pulses, normal dorsalis pedis pul Vascular exam: PRESENT: normal capillary refill. ABSENT: pallor GI/Abdominal exam: PRESENT: hypoactive bowel sounds, soft, tenderness - Mild generalized tenderness with greatest tenderness in the left lower quadrant without point localization Rectal exam: PRESENT: deferred Extremities exam: ABSENT: joint swelling, pedal edema Musculoskeletal exam: ABSENT: deformity, dislocation Neurological exam: PRESENT: alert, oriented to person, oriented to place, oriented to time, oriented to situation, CN II-XII grossly intact. ABSENT: motor sensory deficit Psychiatric exam: PRESENT: appropriate affect, normal mood Skin exam: PRESENT: dry, intact, warm. ABSENT: jaundice, rash, urticaria Results Laboratory Results: 04/11/20 12:13 04/11/20 12:13 04/11/20 04/11/20 04/11/20 12:13 12:13 12:13 WBC 21.5 H RBC 3.68 L Hgb 10.8 L Hct 30.8 L MCV 84 MCH 29.5 MCHC 35.2 RDW 13.9 Plt Count 310 Seg Neutrophils % 88.9 H VBG pH VBG pCO2 VBG HCO3 VBG Base Excess Sodium 134.1 L Potassium 4.5 Chloride 100 Carbon Dioxide 22 Anion Gap 12 BUN 18 Creatinine 0.80 Est GFR ( Amer) > 60 Glucose 129 H Calcium 9.1 Total Bilirubin 0.6 AST 19 Alkaline Phosphatase 71 Total Protein 7.1 Albumin 4.2 Lipase 43.0 Serum HCG, Qual Urine Color CARRIE Urine Appearance CLOUDY Urine pH 5.0 Ur Specific [place] 1.027 Urine Protein 100 H Urine Glucose (UA) NEGATIVE Urine Ketones TRACE H Urine Blood NEGATIVE Urine Nitrite NEGATIVE Ur Leukocyte Esterase TRACE H Urine WBC (Auto) 16 Urine RBC (Auto) 2 Blood Type Antibody Screen 04/11/20 04/11/20 04/11/20 12:13 13:05 13:05 WBC RBC Hgb Hct MCV MCH MCHC RDW Plt Count Seg Neutrophils % VBG pH 7.35 VBG pCO2 39.9 VBG HCO3 21.6 VBG Base Excess -3.6 Sodium Potassium Chloride Carbon Dioxide Anion Gap BUN Creatinine Est GFR ( Amer) Glucose Calcium Total Bilirubin AST Alkaline Phosphatase Total Protein Albumin Lipase Serum HCG, Qual NEGATIVE Urine Color Urine Appearance Urine pH Ur Specific [place] Urine Protein Urine Glucose (UA) Urine Ketones Urine Blood Urine Nitrite Ur Leukocyte Esterase Urine WBC (Auto) Urine RBC (Auto) Blood Type Cancelled Antibody Screen Cancelled 04/11/20 13:53 WBC RBC Hgb Hct MCV MCH MCHC RDW Plt Count Seg Neutrophils % VBG pH VBG pCO2 VBG HCO3 VBG Base Excess Sodium Potassium Chloride Carbon Dioxide Anion Gap BUN Creatinine Est GFR ( Amer) Glucose Calcium Total Bilirubin AST Alkaline Phosphatase Total Protein Albumin Lipase Serum HCG, Qual Urine Color Urine Appearance Urine pH Ur Specific [place] Urine Protein Urine Glucose (UA) Urine Ketones Urine Blood Urine Nitrite Ur Leukocyte Esterase Urine WBC (Auto) Urine RBC (Auto) Blood Type A POSITIVE Antibody Screen NEGATIVE Impressions: Abdomen/Pelvis CT 04/11/20 13:10 IMPRESSION: 1. Small amount of free intraperitoneal fluid ; the attenuation of the fluid in the pelvis measures 56 Hounsfield units suggesting that it is complex and perhaps hemorrhagic. 2. 2.6 x 1.9 cm ovoid cystic lesion in the left adnexum with a thin high attenuation/enhancing rim (image 67 of series 3). An adnexal lesion and free intraperitoneal fluid represent 2 of the 3 components of [place] syndrome. Consider correlation with an pelvic transvaginal US. 3. Unable to identify the appendix. Transvaginal US 04/11/20 14:04 IMPRESSION: Enlarged left ovary with dominant left ovarian cyst. Complex free fluid in the left adnexa and pelvic cul-de-sac. Findings may represent a recently ruptured hemorrhagic ovarian follicle. No definite left ovarian mass is identified. No evidence of ovarian torsion. A follow-up pelvic ultrasound in 4- 6 weeks is recommended to confirm resolution of the left ovarian cyst. Assessment and Plan - Diagnosis (2) Abdominal pain Qualifiers: Abdominal location: left lower quadrant Qualified Code(s): R10.32 - Left lower quadrant pain Is this a current diagnosis for this admission?: Yes (3) Left ovarian cyst Is this a current diagnosis for this admission?: Yes (4) Free fluid in pelvis Is this a current diagnosis for this admission?: Yes (5) Normochromic normocytic anemia Is this a current diagnosis for this admission?: Yes (6) Menorrhagia Qualifiers: Menorrhagia type: with regular cycle Qualified Code(s): N92.0 - Excessive and frequent menstruation with regular cycle Is this a current diagnosis for this admission?: Yes - Plan Summary Summary: Patient will be admitted to the medical service on the medical floor on observation status where she will receive routine supportive and symptomatic cares. She will be treated with IV antibiotics utilizing cefepime. She will receive IV fluids using D5LR at 167 mL/h. She will use Ativan 1 mg IV every 4 hours as needed for anxiety or restlessness. She will use morphine sulfate 2 to 4 mg IV every 2 hours as needed for pain. CBCs, metabolic profiles and additional laboratory and/or radiographic evaluations will be obtained as needed. A surgical consultation with Dr. Raza has been obtained by the [facility] physician and he will continue to see the patient as needed. A gynecology consultation with Dr. Fernandez will be obtained for evaluation and consideration of a possible culdocentesis - Time Time Spent with patient: Less than 15 minutes Medications reviewed and adjusted accordingly: Yes Anticipated Discharge Disposition: Home, Self Care Anticipated Discharge Timeframe: within 48 hours - Inpatient Certification Based on my medical assessment, after consideration of the patient's comorbidities, presenting symptoms, or acuity I expect that the services needed warrant INPATIENT care.: Yes I certify that my determination is in accordance with my understanding of Medicare's requirements for reasonable and necessary INPATIENT services [42 CFR 412.3e].: Yes Medical Necessity: Need Close Monitoring Due to Risk of Patient Decompensation, Need For IV Fluids, Need for IV Antibiotics
[2020-04-12] MEDS: METOPROLOL TARTRATE PF/INJ 5 MG/5 ML SDV IV PRN ×3 (02:17→12:27)
[2020-04-12] MEDS: DEXTROSE 5%-LACTATED RINGERS 1,000 ML IV PRN (04:08)
[2020-04-12] MEDS: HEPARIN SOD (PORCINE) 5,000 UNIT/ML 1 ML VIAL SUBCUT SCH ×4 (05:36→21:55)
[2020-04-12 06:38] LABS: ABSOLUTE EOSINOPHILS # (AUTO) 0.2 10^3/uL (0.0-0.6); ABSOLUTE LYMPHOCYTES (AUTO) 2.3 10^3/uL (0.5-4.7); ABSOLUTE MONOCYTES (AUTO) 0.6 10^3/uL (0.1-1.4); ABSOLUTE NEUT (AUTO) 6.4 10^3/uL (1.7-8.2); BASOPHILS % (AUTO) 0.4 % (0-2); EOSINOPHILS % (AUTO) 1.8 % (0-6); HEMATOCRIT 22.8 % (36.0-47.0); LYMPHOCYTES % (AUTO) 24.3 % (13-45); MEAN CORPUSCULAR HEMOGLOBIN 29.6 pg (27.0-33.4); MEAN CORPUSCULAR HGB CONC 35.1 g/dL (32.0-36.0); MEAN CORPUSCULAR VOLUME 84 fl (80-97); MONOCYTES % (AUTO) 6.4 % (3-13); PLATELET COUNT 216 10^3/uL (150-450); SEGMENTED NEUTROPHILS % (AUTO) 67.1 % (42-78); TOTAL CELLS COUNTED % (AUTO) 100 %; WHITE BLOOD COUNT 9.6 10^3/uL (4.0-10.5)
[2020-04-12 06:59] LABS: ALBUMIN 3.3 g/dL (3.5-5.0); ALKALINE PHOSPHATASE 53 U/L (38-126); ANION GAP 7 (5-19); ASPARTATE AMINO TRANSFERASE 17 U/L (14-36); BILIRUBIN,DIRECT 0.2 mg/dL (0.0-0.4); BILIRUBIN,TOTAL 0.4 mg/dL (0.2-1.3); BLOOD UREA NITROGEN 9 mg/dL (7-20); CALCIUM 8.1 mg/dL (8.4-10.2); CARBON DIOXIDE 27 mmol/L (22-30); CHLORIDE 106 mmol/L (98-107); GLUCOSE 87 mg/dL (75-110); POTASSIUM 3.8 mmol/L (3.6-5.0); TOTAL PROTEIN 5.6 g/dL (6.3-8.2)
[2020-04-12] MEDS: ONDANSETRON HCL INJ/PF 4 MG/2 ML SDV IV PRN ×2 (07:04→12:30)
[2020-04-12] MEDS: FAMOTIDINE INJ/PF 20 MG/2 ML SDV IV SCH ×2 (10:23→21:55)
--- NOTE | 2020-04-12 11:22 | PDOC PROGRESS REPORT ---
Subjective Progress Note for:: 04/12/20 Subjective:: pt still with lower abd pain t;his am having flatus bm yesterday no diarrhea Reason For Visit: ACUTE STREPTOCOCCAL PHARYNGITIS,LEFT OVARIAN CYST Physical Exam Vital Signs: Temp Pulse Resp BP Pulse Ox 98.6 F 121 H 16 128/72 H 97 04/12/20 10:00 04/12/20 07:00 04/12/20 03:41 04/12/20 03:41 04/12/20 03:41 Intake & Output 04/11/20 04/12/20 04/13/20 06:59 06:59 06:59 Intake Total 3450 Balance 3450 Weight 78.2 kg General appearance: PRESENT: no acute distress Head exam: PRESENT: normocephalic Eye exam: PRESENT: EOMI Mouth exam: PRESENT: moist Neck exam: PRESENT: full ROM Respiratory exam: PRESENT: clear to auscultation [place] Cardiovascular exam: PRESENT: RRR Pulses: PRESENT: normal radial pulses, normal dorsalis pedis pul Vascular exam: PRESENT: normal capillary refill GI/Abdominal exam: PRESENT: tenderness - tenderness lower abd both left and right no peritoneal signs Rectal exam: PRESENT: deferred Extremities exam: PRESENT: full ROM Musculoskeletal exam: PRESENT: full ROM Neurological exam: PRESENT: alert, awake, oriented to person, oriented to place Psychiatric exam: PRESENT: appropriate affect Skin exam: PRESENT: dry Results Laboratory Results: 04/12/20 05:55 04/12/20 05:55 04/11/20 04/11/20 04/11/20 12:13 12:13 12:13 WBC 21.5 H RBC 3.68 L Hgb 10.8 L Hct 30.8 L MCV 84 MCH 29.5 MCHC 35.2 RDW 13.9 Plt Count 310 Seg Neutrophils % 88.9 H Retic Count (auto) VBG pH VBG pCO2 VBG HCO3 VBG Base Excess Sodium 134.1 L Potassium 4.5 Chloride 100 Carbon Dioxide 22 Anion Gap 12 BUN 18 Creatinine 0.80 Est GFR ( Amer) > 60 Glucose 129 H Calcium 9.1 Magnesium Iron TIBC % Saturation Ferritin Total Bilirubin 0.6 AST 19 Alkaline Phosphatase 71 Total Protein 7.1 Albumin 4.2 Lipase 43.0 Vitamin B12 Folate TSH Serum HCG, Qual Urine Color CARRIE Urine Appearance CLOUDY Urine pH 5.0 Ur Specific [place] 1.027 Urine Protein 100 H Urine Glucose (UA) NEGATIVE Urine Ketones TRACE H Urine Blood NEGATIVE Urine Nitrite NEGATIVE Ur Leukocyte Esterase TRACE H Urine WBC (Auto) 16 Urine RBC (Auto) 2 Blood Type Antibody Screen 04/11/20 04/11/20 04/11/20 12:13 12:13 12:13 WBC RBC Hgb Hct MCV MCH MCHC RDW Plt Count Seg Neutrophils % Retic Count (auto) 1.49 VBG pH VBG pCO2 VBG HCO3 VBG Base Excess Sodium Potassium Chloride Carbon Dioxide Anion Gap BUN Creatinine Est GFR ( Amer) Glucose Calcium Magnesium Iron 34.3 L TIBC 321 % Saturation 11 Ferritin 40.00 Total Bilirubin AST Alkaline Phosphatase Total Protein Albumin Lipase Vitamin B12 765.0 Folate 6.20 TSH Serum HCG, Qual NEGATIVE Urine Color Urine Appearance Urine pH Ur Specific [place] Urine Protein Urine Glucose (UA) Urine Ketones Urine Blood Urine Nitrite Ur Leukocyte Esterase Urine WBC (Auto) Urine RBC (Auto) Blood Type Antibody Screen 04/11/20 04/11/20 04/11/20 13:05 13:05 13:53 WBC RBC Hgb Hct MCV MCH MCHC RDW Plt Count Seg Neutrophils % Retic Count (auto) VBG pH 7.35 VBG pCO2 39.9 VBG HCO3 21.6 VBG Base Excess -3.6 Sodium Potassium Chloride Carbon Dioxide Anion Gap BUN Creatinine Est GFR ( Amer) Glucose Calcium Magnesium Iron TIBC % Saturation Ferritin Total Bilirubin AST Alkaline Phosphatase Total Protein Albumin Lipase Vitamin B12 Folate TSH Serum HCG, Qual Urine Color Urine Appearance Urine pH Ur Specific [place] Urine Protein Urine Glucose (UA) Urine Ketones Urine Blood Urine Nitrite Ur Leukocyte Esterase Urine WBC (Auto) Urine RBC (Auto) Blood Type Cancelled A POSITIVE Antibody Screen Cancelled NEGATIVE 04/12/20 04/12/20 04/12/20 05:55 05:55 05:55 WBC 9.6 RBC 2.70 L Hgb 8.0 L D Hct 22.8 L MCV 84 MCH 29.6 MCHC 35.1 RDW 14.0 Plt Count 216 Seg Neutrophils % 67.1 Retic Count (auto) VBG pH VBG pCO2 VBG HCO3 VBG Base Excess Sodium 140.2 Potassium 3.8 Chloride 106 Carbon Dioxide 27 Anion Gap 7 BUN 9 Creatinine 0.66 Est GFR ( Amer) > 60 Glucose 87 Calcium 8.1 L Magnesium 2.1 Iron TIBC % Saturation Ferritin Total Bilirubin 0.4 AST 17 Alkaline Phosphatase 53 Total Protein 5.6 L Albumin 3.3 L Lipase Vitamin B12 Folate TSH 6.43 H Serum HCG, Qual Urine Color Urine Appearance Urine pH Ur Specific [place] Urine Protein Urine Glucose (UA) Urine Ketones Urine Blood Urine Nitrite Ur Leukocyte Esterase Urine WBC (Auto) Urine RBC (Auto) Blood Type Antibody Screen Impressions: Abdomen/Pelvis CT 04/11/20 13:10 IMPRESSION: 1. Small amount of free intraperitoneal fluid ; the attenuation of the fluid in the pelvis measures 56 Hounsfield units suggesting that it is complex and perhaps hemorrhagic. 2. 2.6 x 1.9 cm ovoid cystic lesion in the left adnexum with a thin high attenuation/enhancing rim (image 67 of series 3). An adnexal lesion and free intraperitoneal fluid represent 2 of the 3 components of [place] syndrome. Consider correlation with an pelvic transvaginal US. 3. Unable to identify the appendix. Transvaginal US 04/11/20 14:04 IMPRESSION: Enlarged left ovary with dominant left ovarian cyst. Complex free fluid in the left adnexa and pelvic cul-de-sac. Findings may represent a recently ruptured hemorrhagic ovarian follicle. No definite left ovarian mass is identified. No evidence of ovarian torsion. A follow-up pelvic ultrasound in 4- 6 weeks is recommended to confirm resolution of the left ovarian cyst. Assessment & Plan - Time Anticipated Discharge Disposition: Home, Self Care Anticipated Discharge Timeframe: unk - Plan Summary Plan Summary: pt presented yesterday iw 1 day of lower abd pain ct with free fluid and left ovarin cyst ddx include rupt;ured cysts vs hemorrhagic cyst discussed with radiology today who will obtain fluid for sampling.
--- NOTE | 2020-04-12 12:59 | PDOC PROGRESS REPORT ---
Subjective Progress Note for:: 04/12/20 Subjective:: Patient still complaining of abdominal discomfort. She is tachycardic. I will order her home dose of labetalol. Reason For Visit: ACUTE STREPTOCOCCAL PHARYNGITIS,LEFT OVARIAN CYST Physical Exam Vital Signs: Temp Pulse Resp BP Pulse Ox 99.3 F 140 H 20 130/84 H 91 L 04/12/20 11:33 04/12/20 11:33 04/12/20 11:33 04/12/20 11:33 04/12/20 11:33 Intake & Output 04/11/20 04/12/20 04/13/20 06:59 06:59 06:59 Intake Total 3450 Balance 3450 Weight 78.2 kg General appearance: PRESENT: cooperative, mild distress, well-developed, well- nourished Head exam: PRESENT: atraumatic, normocephalic Eye exam: PRESENT: conjunctiva pink, EOMI. ABSENT: scleral icterus Ear exam: PRESENT: normal external ear exam. ABSENT: bleeding, drainage Mouth exam: PRESENT: moist, tongue midline Teeth exam: ABSENT: poor dentation Respiratory exam: PRESENT: symmetrical, unlabored. ABSENT: rales, rhonchi, tachypnea, wheezes Cardiovascular exam: PRESENT: +S1, +S2, tachycardia. ABSENT: bradycardia, diastolic murmur, irregular rhythm, systolic murmur GI/Abdominal exam: PRESENT: normal bowel sounds, soft, tenderness - Mild tendern ess mostly left lower quadrant but also right lower quadrant. ABSENT: distended, guarding Rectal exam: PRESENT: deferred Gentrourinary exam: ABSENT: indwelling catheter Extremities exam: ABSENT: pedal edema Musculoskeletal exam: PRESENT: ambulatory, normal inspection. ABSENT: deformity Neurological exam: PRESENT: alert, awake, oriented to person, oriented to place, oriented to time, oriented to situation, CN II-XII grossly intact. ABSENT: altered Psychiatric exam: PRESENT: appropriate affect. ABSENT: agitated, anxious Focused psych exam: ABSENT: delusional, paranoid Skin exam: PRESENT: dry, normal color, warm. ABSENT: erythema, rash Results Laboratory Results: 04/12/20 05:55 04/12/20 05:55 04/11/20 04/11/20 04/11/20 12:13 12:13 12:13 WBC RBC Hgb Hct MCV MCH MCHC RDW Plt Count Seg Neutrophils % Retic Count (auto) VBG pH VBG pCO2 VBG HCO3 VBG Base Excess Sodium 134.1 L Potassium 4.5 Chloride 100 Carbon Dioxide 22 Anion Gap 12 BUN 18 Creatinine 0.80 Est GFR ( Amer) > 60 Glucose 129 H Calcium 9.1 Magnesium Iron TIBC % Saturation Ferritin Total Bilirubin 0.6 AST 19 Alkaline Phosphatase 71 Total Protein 7.1 Albumin 4.2 Lipase 43.0 Vitamin B12 Folate TSH Serum HCG, Qual NEGATIVE Urine Color CARRIE Urine Appearance CLOUDY Urine pH 5.0 Ur Specific [place] 1.027 Urine Protein 100 H Urine Glucose (UA) NEGATIVE Urine Ketones TRACE H Urine Blood NEGATIVE Urine Nitrite NEGATIVE Ur Leukocyte Esterase TRACE H Urine WBC (Auto) 16 Urine RBC (Auto) 2 Blood Type Antibody Screen 04/11/20 04/11/20 04/11/20 12:13 12:13 13:05 WBC RBC Hgb Hct MCV MCH MCHC RDW Plt Count Seg Neutrophils % Retic Count (auto) 1.49 VBG pH 7.35 VBG pCO2 39.9 VBG HCO3 21.6 VBG Base Excess -3.6 Sodium Potassium Chloride Carbon Dioxide Anion Gap BUN Creatinine Est GFR ( Amer) Glucose Calcium Magnesium Iron 34.3 L TIBC 321 % Saturation 11 Ferritin 40.00 Total Bilirubin AST Alkaline Phosphatase Total Protein Albumin Lipase Vitamin B12 765.0 Folate 6.20 TSH Serum HCG, Qual Urine Color Urine Appearance Urine pH Ur Specific [place] Urine Protein Urine Glucose (UA) Urine Ketones Urine Blood Urine Nitrite Ur Leukocyte Esterase Urine WBC (Auto) Urine RBC (Auto) Blood Type Antibody Screen 04/11/20 04/11/20 04/12/20 13:05 13:53 05:55 WBC 9.6 RBC 2.70 L Hgb 8.0 L D Hct 22.8 L MCV 84 MCH 29.6 MCHC 35.1 RDW 14.0 Plt Count 216 Seg Neutrophils % 67.1 Retic Count (auto) VBG pH VBG pCO2 VBG HCO3 VBG Base Excess Sodium Potassium Chloride Carbon Dioxide Anion Gap BUN Creatinine Est GFR ( Amer) Glucose Calcium Magnesium Iron TIBC % Saturation Ferritin Total Bilirubin AST Alkaline Phosphatase Total Protein Albumin Lipase Vitamin B12 Folate TSH Serum HCG, Qual Urine Color Urine Appearance Urine pH Ur Specific [place] Urine Protein Urine Glucose (UA) Urine Ketones Urine Blood Urine Nitrite Ur Leukocyte Esterase Urine WBC (Auto) Urine RBC (Auto) Blood Type Cancelled A POSITIVE Antibody Screen Cancelled NEGATIVE 04/12/20 04/12/20 05:55 05:55 WBC RBC Hgb Hct MCV MCH MCHC RDW Plt Count Seg Neutrophils % Retic Count (auto) VBG pH VBG pCO2 VBG HCO3 VBG Base Excess Sodium 140.2 Potassium 3.8 Chloride 106 Carbon Dioxide 27 Anion Gap 7 BUN 9 Creatinine 0.66 Est GFR ( Amer) > 60 Glucose 87 Calcium 8.1 L Magnesium 2.1 Iron TIBC % Saturation Ferritin Total Bilirubin 0.4 AST 17 Alkaline Phosphatase 53 Total Protein 5.6 L Albumin 3.3 L Lipase Vitamin B12 Folate TSH 6.43 H Serum HCG, Qual Urine Color Urine Appearance Urine pH Ur Specific [place] Urine Protein Urine Glucose (UA) Urine Ketones Urine Blood Urine Nitrite Ur Leukocyte Esterase Urine WBC (Auto) Urine RBC (Auto) Blood Type Antibody Screen Impressions: Abdomen/Pelvis CT 04/11/20 13:10 IMPRESSION: 1. Small amount of free intraperitoneal fluid ; the attenuation of the fluid in the pelvis measures 56 Hounsfield units suggesting that it is complex and perhaps hemorrhagic. 2. 2.6 x 1.9 cm ovoid cystic lesion in the left adnexum with a thin high attenuation/enhancing rim (image 67 of series 3). An adnexal lesion and free intraperitoneal fluid represent 2 of the 3 components of [place] syndrome. Consider correlation with an pelvic transvaginal US. 3. Unable to identify the appendix. Transvaginal US 04/11/20 14:04 IMPRESSION: Enlarged left ovary with dominant left ovarian cyst. Complex free fluid in the left adnexa and pelvic cul-de-sac. Findings may represent a recently ruptured hemorrhagic ovarian follicle. No definite left ovarian mass is identified. No evidence of ovarian torsion. A follow-up pelvic ultrasound in 4- 6 weeks is recommended to confirm resolution of the left ovarian cyst. Assessment and Plan - Diagnosis (1) Abdominal pain Qualifiers: Abdominal location: left lower quadrant Qualified Code(s): R10.32 - Left lower quadrant pain Is this a current diagnosis for this admission?: Yes (2) Left ovarian cyst Is this a current diagnosis for this admission?: Yes (3) Free fluid in pelvis Is this a current diagnosis for this admission?: Yes (4) Menorrhagia Qualifiers: Menorrhagia type: with regular cycle Qualified Code(s): N92.0 - Excessive and frequent menstruation with regular cycle Is this a current diagnosis for this admission?: Yes (5) Normochromic normocytic anemia Is this a current diagnosis for this admission?: Yes (6) Hypothyroidism Qualifiers: Hypothyroidism type: unspecified Qualified Code(s): E03.9 - Hypothyroidism, unspecified Is this a current diagnosis for this admission?: Yes - Plan Summary Summary: Patient will be admitted to the medical service on the medical floor on observ ation status where she will receive routine supportive and symptomatic cares. She will be treated with IV antibiotics utilizing cefepime. She will receive IV fluids using D5LR at 167 mL/h. She will use Ativan 1 mg IV every 4 hours as needed for anxiety or restlessness. She will use morphine sulfate 2 to 4 mg IV every 2 hours as needed for pain. CBCs, metabolic profiles and additional laboratory and/or radiographic evaluations will be obtained as needed. A surgical consultation with Dr. Raza has been obtained by the emergency room physician and he will continue to see the patient as needed. A gynecology consultation with Dr. Fernandez will be obtained for evaluation and consideration of a possible culdocentesis 04/12/2020 Abdominal pain-the patient is on her way down to radiology for paracentesis. I have ordered cell count, Gram stain and culture as well as chemistries. Free fluid in pelvis-continue antibiotic therapy at this time Left ovarian cyst-await results of paracentesis to see if this was a possible hemorrhagic cyst versus ruptured ovarian cyst. Anemia-hemoglobin is down to 8.0 from 10.8. This would suggest possible hemorrhagic cyst. Iron studies reveal a serum iron of 34.3 with TIBC 321, percent saturation 11 and ferritin of 40. Will recheck CBC in the morning. No reason for transfusion at this time. Menorrhagia-certainly could be contributing to the anemia. No acute intervention at this time. Hypothyroidism-TSH is elevated. I will check free T3 and free T4. - Time Time Spent with patient: 15-24 minutes Medications reviewed and adjusted accordingly: Yes Anticipated Discharge Disposition: Home, Self Care Anticipated Discharge Timeframe: within 72 hours
--- NOTE | 2020-04-12 13:28 | RADIOLOGY REPORT (SQ) ---
EXAM DESCRIPTION: U/S ABDOMEN LIMITED W/O DOP IMAGES COMPLETED DATE/TIME: 04/12/2020 1:18 pm REASON FOR STUDY: peritoneal fluid COMPARISON: None. TECHNIQUE: Dynamic and static grayscale images acquired of the localized site of clinical concern an d recorded on PACS. Additional selected color Doppler and spectral images recorded. SITE OF CONCERN: Left upper and lower quadrants. LIMITATIONS: None. FINDINGS: Small amount of free fluid surrounding the spleen and in the left pericolic gutter. No wi ndow for safe paracentesis could be localized. IMPRESSION: No window for safe paracentesis under ultrasound guidance. TECHNICAL DOCUMENTATION: JOB ID: [id number] 2010 [employer]- All Rights Reserved Reading location - IP/workstation name: [email or web address]
[2020-04-12] MEDS: LABETALOL HCL 200 MG TABLET PO SCH ×2 (14:07→21:55)
[2020-04-12 14:55] LABS: FLUID APPEARANCE TURBID; FLUID COLOR RED; FLUID SOURCE ABDOMEN; FLUID TYPE PERITONEAL; FLUID VISCOSITY LIQUID
--- NOTE | 2020-04-12 15:04 | RADIOLOGY REPORT (SQ) ---
EXAM DESCRIPTION: CT DRAINAGE RETRO/PERITONEAL; CT NEEDLE PLACEMENT IMAGES COMPLETED DATE/TIME: 04/12/2020 1:51 pm REASON FOR STUDY: PERITONEAL FLUID COMPARISON: None. FLUOROSCOPY TIME: 8 seconds RADIATION DOSE: CT Rad equipment meets quality standard of care and radiation dose reduction techniq ues were employed. CTDIvol: 9.5 - 24.7 mGy. DLP: 1315 mGy-cm. mGy. LIMITATIONS: None. PROCEDURE: Procedure, risks, benefit, and alternative explained to patient who then gave written con sent. The abdominal wall was marked; "time-out" called; correct marking verified. Entry site marke d using CT guidance. Abdomen prepped and draped using sterile technique. Local anesthesia achieved using 1% lidocaine injection. Hypodermic needle introduced into the peritoneal space. Fluid aspira mimi. Needle removed and entry site covered with sterile bandage. No immediate complications noted . Images were acquired during the procedure and stored on PACS. All CT scanners at this facility use dose modulation, iterative reconstruction, and/or weight based d osing when appropriate to reduce radiation dose to as low as reasonably achievable (ALARA). [facility]: Dose Right [facility]: CareDose [facility]: Dose Right [facility]: Teradose 4D [facility]: Freever FINDINGS: ENTRY SITE: Left upper quadrant. FLUID VOLUME: 60 cc. FLUID ANALYSIS: Serosanguineous. OTHER: Fluid sent to the lab for testing. IMPRESSION: SUCCESSFUL CT GUIDED PARACENTESIS. COMMENT: Patient medication list reviewed: Yes- Quality ID# [id number]:Eligible professional attests to doc umenting in the medical record they obtained, updated, or reviewed the patient's current medications. . TECHNICAL DOCUMENTATION: JOB ID: [id number] Quality ID # [id number]: Final reports with documentation of one or more dose reduction techniques (e.g., Au tomated exposure control, adjustment of the mA and/or kV according to patient size, use of iterative reconstruction technique) 2010 [employer]- All Rights Reserved Reading location - IP/workstation name: [email or web address]
--- NOTE | 2020-04-12 15:04 | RADIOLOGY REPORT (SQ) ---
EXAM DESCRIPTION: CT DRAINAGE RETRO/PERITONEAL; CT NEEDLE PLACEMENT IMAGES COMPLETED DATE/TIME: 04/12/2020 1:51 pm REASON FOR STUDY: PERITONEAL FLUID COMPARISON: None. FLUOROSCOPY TIME: 8 seconds RADIATION DOSE: CT Rad equipment meets quality standard of care and radiation dose reduction techniq ues were employed. CTDIvol: 9.5 - 24.7 mGy. DLP: 1315 mGy-cm. mGy. LIMITATIONS: None. PROCEDURE: Procedure, risks, benefit, and alternative explained to patient who then gave written con sent. The abdominal wall was marked; "time-out" called; correct marking verified. Entry site marke d using CT guidance. Abdomen prepped and draped using sterile technique. Local anesthesia achieved using 1% lidocaine injection. Hypodermic needle introduced into the peritoneal space. Fluid aspira mimi. Needle removed and entry site covered with sterile bandage. No immediate complications noted . Images were acquired during the procedure and stored on PACS. All CT scanners at this facility use dose modulation, iterative reconstruction, and/or weight based d osing when appropriate to reduce radiation dose to as low as reasonably achievable (ALARA). [facility]: Dose Right [facility]: CareDose [facility]: Dose Right [facility]: Teradose 4D [facility]: Pressly FINDINGS: ENTRY SITE: Left upper quadrant. FLUID VOLUME: 60 cc. FLUID ANALYSIS: Serosanguineous. OTHER: Fluid sent to the lab for testing. IMPRESSION: SUCCESSFUL CT GUIDED PARACENTESIS. COMMENT: Patient medication list reviewed: Yes- Quality ID# [id number]:Eligible professional attests to doc umenting in the medical record they obtained, updated, or reviewed the patient's current medications. . TECHNICAL DOCUMENTATION: JOB ID: [id number] Quality ID # [id number]: Final reports with documentation of one or more dose reduction techniques (e.g., Au tomated exposure control, adjustment of the mA and/or kV according to patient size, use of iterative reconstruction technique) 2010 [employer]- All Rights Reserved Reading location - IP/workstation name: [email or web address]
[2020-04-12] MEDS ORDERED: (PENDING PHARMACY ID) (Labetalol Hcl [Labetalol Hcl] 100 MG) PO SCH (18:00)
[2020-04-13] MEDS: MORPHINE SULFATE 10 MG/ML INJ IV PRN ×4 (03:38→22:23)
[2020-04-13] MEDS: AMPICILLIN SODIUM/SULBACTAM NA 3 GM in NORMAL SALINE 100 ML IV SCH ×4 (05:51→23:57)
[2020-04-13] MEDS: HEPARIN SOD (PORCINE) 5,000 UNIT/ML 1 ML VIAL SUBCUT SCH (05:51)
[2020-04-13] MEDS: DEXTROSE 5%-LACTATED RINGERS 1,000 ML IV PRN ×2 (06:48→23:57)
[2020-04-13 07:11] LABS: ABSOLUTE EOSINOPHILS # (AUTO) 0.2 10^3/uL (0.0-0.6); ABSOLUTE LYMPHOCYTES (AUTO) 2.2 10^3/uL (0.5-4.7); ABSOLUTE MONOCYTES (AUTO) 0.5 10^3/uL (0.1-1.4); ABSOLUTE NEUT (AUTO) 4.9 10^3/uL (1.7-8.2); BASOPHILS % (AUTO) 0.5 % (0-2); EOSINOPHILS % (AUTO) 3.2 % (0-6); HEMATOCRIT 21.7 % (36.0-47.0); LYMPHOCYTES % (AUTO) 28.1 % (13-45); MEAN CORPUSCULAR HEMOGLOBIN 29.4 pg (27.0-33.4); MEAN CORPUSCULAR HGB CONC 34.8 g/dL (32.0-36.0); MEAN CORPUSCULAR VOLUME 84 fl (80-97); MONOCYTES % (AUTO) 5.9 % (3-13); PLATELET COUNT 212 10^3/uL (150-450); RED BLOOD COUNT 2.57 10^6/uL (3.72-5.28); RED CELL DISTRIBUTION WIDTH 13.9 % (11.5-14.0); SEGMENTED NEUTROPHILS % (AUTO) 62.3 % (42-78); TOTAL CELLS COUNTED % (AUTO) 100 %; WHITE BLOOD COUNT 7.9 10^3/uL (4.0-10.5)
[2020-04-13 07:23] LABS: HEMOGLOBIN 7.6 g/dL (12.0-15.5)
[2020-04-13 07:28] LABS: BLOOD UREA NITROGEN 8 mg/dL (7-20); GLUCOSE 83 mg/dL (75-110)
[2020-04-13 07:29] LABS: ANION GAP 7 (5-19); CARBON DIOXIDE 28 mmol/L (22-30); CHLORIDE 103 mmol/L (98-107); POTASSIUM 3.8 mmol/L (3.6-5.0)
[2020-04-13 07:52] LABS: FREE T3 3.68 pg/mL (2.77-5.27); FREE T4 (FREE THYROXINE) 1.08 ng/dL (0.78-2.19)
[2020-04-13] MEDS: FAMOTIDINE INJ/PF 20 MG/2 ML SDV IV SCH ×2 (09:31→22:24)
[2020-04-13] MEDS: LABETALOL HCL 200 MG TABLET PO SCH ×2 (09:31→22:24)
[2020-04-13] MEDS ORDERED: LIDOCAINE 2% INJ-PF (20 MG/ML) 2 ML AMPUL ONE (09:51)
[2020-04-13] MEDS ORDERED: GLYCOPYRROLATE 1 MG/5 ML VIAL ONE (09:51)
[2020-04-13] MEDS ORDERED: NEOSTIGMINE METHYLSULFATE 10 MG/10 ML VIAL ONE (09:51)
[2020-04-13] MEDS ORDERED: SUCCINYLCHOLINE CHLORIDE INJ 200 MG/10 ML VIAL ONE (09:51)
[2020-04-13] MEDS ORDERED: ROCURONIUM BROMIDE INJ 50 MG/5 ML VIAL IV ONE (09:51)
[2020-04-13] MEDS ORDERED: DEXAMETHASONE SOD PHOSPHATE INJ 4 MG/1 ML VIAL ONE (09:51)
[2020-04-13] MEDS ORDERED: ONDANSETRON HCL INJ/PF 4 MG/2 ML SDV ONE (09:51)
--- NOTE | 2020-04-13 10:56 | PDOC PROGRESS REPORT ---
Subjective Progress Note for:: 04/13/20 Subjective:: Still having pain in lower abdomen that is worse on the left. WHen her pain medicine is wearing off the pain is 3-4 /5 still. She states taking broths /clears without n/v. Had BM yesterday. No f/c. Reason For Visit: ACUTE STREPTOCOCCAL PHARYNGITIS,LEFT OVARIAN CYST Physical Exam - Physical Exam Vital Signs: Temp Pulse Resp BP Pulse Ox 97.7 F 110 H 18 116/73 100 04/13/20 08:57 04/13/20 07:38 04/13/20 07:38 04/13/20 07:38 04/13/20 07:38 Intake & Output 04/12/20 04/13/20 04/14/20 06:59 06:59 06:59 Intake Total 3450 2194 Balance 3450 2194 Weight 78.2 kg 78.2 kg General appearance: PRESENT: no acute distress, cooperative Respiratory exam: PRESENT: clear to auscultation [place] Cardiovascular exam: PRESENT: RRR, +S1, +S2 GI/Abdominal exam: PRESENT: soft, tenderness - tender on palpation lightly in lower abdomen. Pain during fluid assessment for ascites. Result Laboratory Results: 04/13/20 06:54 04/13/20 06:54 04/12/20 04/13/20 04/13/20 13:40 06:54 06:54 WBC 7.9 RBC 2.57 L Hgb 7.6 L Hct 21.7 L MCV 84 MCH 29.4 MCHC 34.8 RDW 13.9 Plt Count 212 Seg Neutrophils % 62.3 Sodium 137.8 Potassium 3.8 Chloride 103 Carbon Dioxide 28 Anion Gap 7 BUN 8 Creatinine 0.57 Est GFR ( Amer) > 60 Glucose 83 Calcium 8.0 L Free T4 Free T3 pg/mL Fluid Type PERITONEAL Fluid Source ABDOMEN Fluid Color RED Fluid Appearance TURBID Fluid Viscosity LIQUID Fluid WBC 63309 Fluid RBC [id number] 04/13/20 06:54 WBC RBC Hgb Hct MCV MCH MCHC RDW Plt Count Seg Neutrophils % Sodium Potassium Chloride Carbon Dioxide Anion Gap BUN Creatinine Est GFR ( Amer) Glucose Calcium Free T4 1.08 Free T3 pg/mL 3.68 Fluid Type Fluid Source Fluid Color Fluid Appearance Fluid Viscosity Fluid WBC Fluid RBC Impressions: Abdomen/Pelvis CT 04/11/20 13:10 IMPRESSION: 1. Small amount of free intraperitoneal fluid ; the attenuation of the fluid in the pelvis measures 56 Hounsfield units suggesting that it is complex and perhaps hemorrhagic. 2. 2.6 x 1.9 cm ovoid cystic lesion in the left adnexum with a thin high attenuation/enhancing rim (image 67 of series 3). An adnexal lesion and free intraperitoneal fluid represent 2 of the 3 components of [place] syndrome. Consider correlation with an pelvic transvaginal US. 3. Unable to identify the appendix. Transvaginal US 04/11/20 14:04 IMPRESSION: Enlarged left ovary with dominant left ovarian cyst. Complex free fluid in the left adnexa and pelvic cul-de-sac. Findings may represent a recently ruptured hemorrhagic ovarian follicle. No definite left ovarian mass is identified. No evidence of ovarian torsion. A follow-up pelvic ultrasound in 4- 6 weeks is recommended to confirm resolution of the left ovarian cyst. Abdomen Ultrasound 04/12/20 00:00 IMPRESSION: No window for safe paracentesis under ultrasound guidance. Guidance Needle Placement CT 04/12/20 00:00 IMPRESSION: SUCCESSFUL CT GUIDED PARACENTESIS. Retroperitoneal Abscess Drainage 04/12/20 00:00 IMPRESSION: SUCCESSFUL CT GUIDED PARACENTESIS. Assessment & Plan - Diagnosis (1) Abdominal pain Qualifiers: Abdominal location: left lower quadrant Qualified Code(s): R10.32 - Left lower quadrant pain Is this a current diagnosis for this admission?: Yes (2) Free fluid in pelvis Is this a current diagnosis for this admission?: Yes (3) Hemoperitoneum (nontraumatic) Is this a current diagnosis for this admission?: Yes (4) Left ovarian cyst Is this a current diagnosis for this admission?: Yes - Time Time Spent with patient: 15-24 minutes Medications reviewed and adjusted accordingly: Yes Anticipated discharge: Home Anticipated DC Timeframe: within 36 hours - Plan Summary Plan Summary: 24 yo with lower abdominal pain, likely ruptured hemorrhagic cyst on left -VS with mild tachycardia at 115 bpm and no hypotension. Afebrile -Abdomen cell tender today on light palpation and when assessing for fluid shif t reports pain. -Discussed with patient that hemorrhagic cyst likely on left . Difficult to say if still bleeding but Hgb has dropped from 10.8--> 8.0--> 7.6 -Discussed options to continue monitoring or diagnostic laparoscopy with evacuation hemoperitoneum and possible removal left ovarian cyst/control of bleeding. SHe is favoring later. Will stop back by in 1-2 hour to reassess. Likely to OR for dx laparoscopy as above
--- NOTE | 2020-04-13 13:32 | PDOC PROGRESS REPORT ---
Subjective Progress Note for:: 04/13/20 Subjective:: Patient was seen on morning rounds. She is resting in bed comfortably. She continues to have left lower abdominal pain which occasionally radiates to the right lower quadrant. Pain rated 3/5. She is able to eat liquids. Denies nausea, vomiting, or diarrhea. She continues to experience palpitations, this is primarily with exertion, denies at rest. She reports feeling light headed when switching form seated to standing position too quickly. Otherwise denies generalized weakness, headache, tetany, change in vision, LOC, CP, lower extremity swelling, numbness or tingling. Discussed case with nurse. Per nurse patient continues to be tachycardic, but expresses no other concerns or complaints. Reason For Visit: ACUTE STREPTOCOCCAL PHARYNGITIS,LEFT OVARIAN CYST Physical Exam Vital Signs: Temp Pulse Resp BP Pulse Ox 98.3 F 112 H 19 107/68 99 04/13/20 11:48 04/13/20 11:48 04/13/20 11:48 04/13/20 11:48 04/13/20 11:48 Intake & Output 04/12/20 04/13/20 04/14/20 06:59 06:59 06:59 Intake Total 3450 2194 100 Balance 3450 2194 100 Weight 78.2 kg 78.2 kg General appearance: PRESENT: cooperative, well-developed, well-nourished Head exam: PRESENT: atraumatic, normocephalic Eye exam: PRESENT: conjunctiva pink, EOMI, PERRLA. ABSENT: scleral icterus Ear exam: PRESENT: normal external ear exam. ABSENT: bleeding, drainage Mouth exam: PRESENT: moist, tongue midline Teeth exam: ABSENT: poor dentation Neck exam: PRESENT: full ROM. ABSENT: lymphadenopathy, tenderness Respiratory exam: PRESENT: symmetrical, unlabored. ABSENT: rales, rhonchi, tachypnea, wheezes Cardiovascular exam: PRESENT: +S1, +S2, tachycardia. ABSENT: diastolic murmur, irregular rhythm, systolic murmur GI/Abdominal exam: PRESENT: normal bowel sounds, soft, tenderness - LLQ > RLQ. ABSENT: distended, firm, rebound Rectal exam: PRESENT: deferred Extremities exam: PRESENT: full ROM. ABSENT: clubbing, pedal edema Musculoskeletal exam: PRESENT: ambulatory, full ROM. ABSENT: deformity, dislocation Neurological exam: PRESENT: alert, awake, oriented to person, oriented to place, oriented to time, CN II-XII grossly intact. ABSENT: altered, motor sensory deficit Psychiatric exam: PRESENT: appropriate affect, normal mood Skin exam: PRESENT: dry, intact, warm. ABSENT: erythema, rash Results Laboratory Results: 04/13/20 06:54 04/13/20 06:54 04/12/20 04/13/20 04/13/20 13:40 06:54 06:54 WBC 7.9 RBC 2.57 L Hgb 7.6 L Hct 21.7 L MCV 84 MCH 29.4 MCHC 34.8 RDW 13.9 Plt Count 212 Seg Neutrophils % 62.3 Sodium 137.8 Potassium 3.8 Chloride 103 Carbon Dioxide 28 Anion Gap 7 BUN 8 Creatinine 0.57 Est GFR ( Amer) > 60 Glucose 83 Calcium 8.0 L Free T4 Free T3 pg/mL Fluid Type PERITONEAL Fluid Source ABDOMEN Fluid Color RED Fluid Appearance TURBID Fluid Viscosity LIQUID Fluid WBC 46599 Fluid RBC [id number] 04/13/20 06:54 WBC RBC Hgb Hct MCV MCH MCHC RDW Plt Count Seg Neutrophils % Sodium Potassium Chloride Carbon Dioxide Anion Gap BUN Creatinine Est GFR ( Amer) Glucose Calcium Free T4 1.08 Free T3 pg/mL 3.68 Fluid Type Fluid Source Fluid Color Fluid Appearance Fluid Viscosity Fluid WBC Fluid RBC Impressions: Abdomen/Pelvis CT 04/11/20 13:10 IMPRESSION: 1. Small amount of free intraperitoneal fluid ; the attenuation of the fluid in the pelvis measures 56 Hounsfield units suggesting that it is complex and perhaps hemorrhagic. 2. 2.6 x 1.9 cm ovoid cystic lesion in the left adnexum with a thin high attenuation/enhancing rim (image 67 of series 3). An adnexal lesion and free intraperitoneal fluid represent 2 of the 3 components of [place] syndrome. Consider correlation with an pelvic transvaginal US. 3. Unable to identify the appendix. Transvaginal US 04/11/20 14:04 IMPRESSION: Enlarged left ovary with dominant left ovarian cyst. Complex free fluid in the left adnexa and pelvic cul-de-sac. Findings may represent a recently ruptured hemorrhagic ovarian follicle. No definite left ovarian mass is identified. No evidence of ovarian torsion. A follow-up pelvic ultrasound in 4- 6 weeks is recommended to confirm resolution of the left ovarian cyst. Abdomen Ultrasound 04/12/20 00:00 IMPRESSION: No window for safe paracentesis under ultrasound guidance. Guidance Needle Placement CT 04/12/20 00:00 IMPRESSION: SUCCESSFUL CT GUIDED PARACENTESIS. Retroperitoneal Abscess Drainage 04/12/20 00:00 IMPRESSION: SUCCESSFUL CT GUIDED PARACENTESIS. Assessment and Plan - Diagnosis (1) Abdominal pain Qualifiers: Abdominal location: left lower quadrant Qualified Code(s): R10.32 - Left lower quadrant pain Is this a current diagnosis for this admission?: Yes (2) Left ovarian cyst Is this a current diagnosis for this admission?: Yes (3) Free fluid in pelvis Is this a current diagnosis for this admission?: Yes (4) Menorrhagia Qualifiers: Menorrhagia type: with regular cycle Qualified Code(s): N92.0 - Excessive and frequent menstruation with regular cycle Is this a current diagnosis for this admission?: Yes (5) Normochromic normocytic anemia Is this a current diagnosis for this admission?: Yes (6) Tachycardia Is this a current diagnosis for this admission?: Yes (7) Subclinical hypothyroidism Is this a current diagnosis for this admission?: Yes (8) Acute streptococcal pharyngitis Is this a current diagnosis for this admission?: Yes - Plan Summary Summary: Patient will be admitted to the medical service on the medical floor on observation status where she will receive routine supportive and symptomatic cares. She will be treated with IV antibiotics utilizing cefepime. She will receive IV fluids using D5LR at 167 mL/h. She will use Ativan 1 mg IV every 4 hours as needed for anxiety or restlessness. She will use morphine sulfate 2 to 4 mg IV every 2 hours as needed for pain. CBCs, metabolic profiles and additional laboratory and/or radiographic evaluations will be obtained as needed. A surgical consultation with Dr. Raza has been obtained by the emergency room physician and he will continue to see the patient as needed. A gynecology consultation with Dr. Fernandez will be obtained for evaluation and consideration of a possible culdocentesis 04/12/2020 Abdominal pain-the patient is on her way down to radiology for paracentesis. I have ordered cell count, Gram stain and culture as well as chemistries. Free fluid in pelvis-continue antibiotic therapy at this time Left ovarian cyst-await results of paracentesis to see if this was a possible hemorrhagic cyst versus ruptured ovarian cyst. Anemia-hemoglobin is down to 8.0 from 10.8. This would suggest possible hemorrhagic cyst. Iron studies reveal a serum iron of 34.3 with TIBC 321, percent saturation 11 and ferritin of 40. Will recheck CBC in the morning. No reason for transfusion at this time. Menorrhagia-certainly could be contributing to the anemia. No acute intervention at this time. Hypothyroidism-TSH is elevated. I will check free T3 and free T4. Tachycardia-resume labetalol 100 mg twice daily 04/13/2020 Abdominal pain: Paracentesis performed yesterday. Fluid RBC of 5,232,500. -Patient is followed by Dr. Man, [employer]. Recommends diagnostic laparoscopy with evacuation of hemoperitoneum and possible removal of left ovarian cyst/c ontrol of bleeding. -Patient is followed by surgery. Agreeing to [employer] treatment plan. Free fluid in pelvis: Found to be laz blood on paracentesis. -Peritoneal Gram stain with no growth in 24 hours. Continue with Unasyn. Consider discontinue if no growth in 48 hours. -Treatment as stated above. Left ovarian Cyst: Treatment pending results of diagnostic laparoscopy. Anemia: Hemoglobin continues to trend downward 8.0 ->7.6.Suggestive of possible hemorrhagic cyst. -Repeat CBC with hemoglobin 7.8. Transfusion not indicated at this time. -Iron studies significant for low iron with normal TIBC and ferritin. Consider iron supplementation upon discharge. -Continue to monitor with repeat CBC in the morning. Menorrhagia: Contributing to the anemia. -No acute intervention at this time. Subacute hypothyroidism: TSH is elevated (6.43), free T4 and free T3 within normal limits. -No intervention indicated at this time. Tachycardia: Heart rate continues to be in the 100s. -Continue with labetalol. -May utilize Lopressor if heart rate greater than 120. -Continue to monitor, expect to see improvement with current treatment regimen. Positive group A strep rapid: As noted in the ED. -Currently on Unasyn for intra-abdominal coverage (see above). This provides coverage for group A strep. -We will change antibiotic regimen pending peritoneal fluid growth. - Time Time Spent with patient: 15-24 minutes Medications reviewed and adjusted accordingly: Yes Anticipated Discharge Disposition: Home, Self Care Anticipated Discharge Timeframe: within 48 hours
--- NOTE | 2020-04-13 13:40 | PDOC PROGRESS REPORT ---
Subjective Progress Note for:: 04/13/20 Subjective:: 24 year old female with left-sided abdominal pain and free intraperitoneal fluid. She continues to complain of pain. She denies nausea, vomiting, chest pain, melena, hematochezia, hematemesis, blurry vision. She does report mild shortness of breath, sore throat, pain with deep inspiration, and orthostasis. Reason For Visit: ACUTE STREPTOCOCCAL PHARYNGITIS,LEFT OVARIAN CYST Physical Exam Vital Signs: Temp Pulse Resp BP Pulse Ox 98.3 F 112 H 19 107/68 99 04/13/20 11:48 04/13/20 11:48 04/13/20 11:48 04/13/20 11:48 04/13/20 11:48 Intake & Output 04/12/20 04/13/20 04/14/20 06:59 06:59 06:59 Intake Total 3450 2194 100 Balance 3450 2194 100 Weight 78.2 kg 78.2 kg General appearance: PRESENT: cooperative. ABSENT: disheveled Head exam: PRESENT: atraumatic, normocephalic Eye exam: PRESENT: EOMI, PERRLA. ABSENT: scleral icterus Mouth exam: PRESENT: moist, neck supple Neck exam: ABSENT: meningismus, tenderness, thyromegaly, tracheal deviation Cardiovascular exam: PRESENT: tachycardia - mild GI/Abdominal exam: PRESENT: soft, tenderness - all 4 quadrants Rectal exam: PRESENT: deferred Extremities exam: ABSENT: clubbing Musculoskeletal exam: ABSENT: deformity Neurological exam: PRESENT: alert, awake, oriented to person, oriented to place, oriented to time, oriented to situation, CN II-XII grossly intact Psychiatric exam: ABSENT: agitated, anxious, depressed Focused psych exam: ABSENT: delusional Skin exam: ABSENT: cyanosis, erythema, jaundice Results Laboratory Results: 04/13/20 06:54 04/13/20 06:54 04/12/20 04/13/20 04/13/20 13:40 06:54 06:54 WBC 7.9 RBC 2.57 L Hgb 7.6 L Hct 21.7 L MCV 84 MCH 29.4 MCHC 34.8 RDW 13.9 Plt Count 212 Seg Neutrophils % 62.3 Sodium 137.8 Potassium 3.8 Chloride 103 Carbon Dioxide 28 Anion Gap 7 BUN 8 Creatinine 0.57 Est GFR ( Amer) > 60 Glucose 83 Calcium 8.0 L Free T4 Free T3 pg/mL Fluid Type PERITONEAL Fluid Source ABDOMEN Fluid Color RED Fluid Appearance TURBID Fluid Viscosity LIQUID Fluid WBC 76826 Fluid RBC [id number] 04/13/20 06:54 WBC RBC Hgb Hct MCV MCH MCHC RDW Plt Count Seg Neutrophils % Sodium Potassium Chloride Carbon Dioxide Anion Gap BUN Creatinine Est GFR ( Amer) Glucose Calcium Free T4 1.08 Free T3 pg/mL 3.68 Fluid Type Fluid Source Fluid Color Fluid Appearance Fluid Viscosity Fluid WBC Fluid RBC Impressions: Abdomen/Pelvis CT 04/11/20 13:10 IMPRESSION: 1. Small amount of free intraperitoneal fluid ; the attenuation of the fluid in the pelvis measures 56 Hounsfield units suggesting that it is complex and perhaps hemorrhagic. 2. 2.6 x 1.9 cm ovoid cystic lesion in the left adnexum with a thin high attenuation/enhancing rim (image 67 of series 3). An adnexal lesion and free intraperitoneal fluid represent 2 of the 3 components of [place] syndrome. Consider correlation with an pelvic transvaginal US. 3. Unable to identify the appendix. Transvaginal US 04/11/20 14:04 IMPRESSION: Enlarged left ovary with dominant left ovarian cyst. Complex free fluid in the left adnexa and pelvic cul-de-sac. Findings may represent a recently ruptured hemorrhagic ovarian follicle. No definite left ovarian mass is identified. No evidence of ovarian torsion. A follow-up pelvic ultrasound in 4- 6 weeks is recommended to confirm resolution of the left ovarian cyst. Abdomen Ultrasound 04/12/20 00:00 IMPRESSION: No window for safe paracentesis under ultrasound guidance. Guidance Needle Placement CT 04/12/20 00:00 IMPRESSION: SUCCESSFUL CT GUIDED PARACENTESIS. Retroperitoneal Abscess Drainage 04/12/20 00:00 IMPRESSION: SUCCESSFUL CT GUIDED PARACENTESIS. Assessment & Plan - Diagnosis (1) Abdominal pain Qualifiers: Abdominal location: left lower quadrant Qualified Code(s): R10.32 - Left lower quadrant pain Is this a current diagnosis for this admission?: Yes (2) Acute streptococcal pharyngitis Is this a current diagnosis for this admission?: Yes (3) Free fluid in pelvis Is this a current diagnosis for this admission?: Yes - Time Anticipated Discharge Disposition: unknown Anticipated Discharge Timeframe: unknown - Plan Summary Plan Summary: 24-year-old female with abdominal pain, free intra-abdominal fluid, and anemia. The fluid in her abdomen was aspirated yesterday, and found to be laz blood. There is a cystic lesion of the left ovary. I have discussed the case with Dr. Man, who will come to evaluate the patient, to detemine if a hemorrhagic cyst is a likely explanation for her symptomatology. Still seriously doubt acute appendicitis. Surgery will continue to follow.
[2020-04-13 16:20] LABS: HEMATOCRIT 22.4 % (36.0-47.0); MEAN CORPUSCULAR HEMOGLOBIN 29.4 pg (27.0-33.4); MEAN CORPUSCULAR HGB CONC 34.8 g/dL (32.0-36.0); MEAN CORPUSCULAR VOLUME 84 fl (80-97); PLATELET COUNT 253 10^3/uL (150-450); RED BLOOD COUNT 2.65 10^6/uL (3.72-5.28); RED CELL DISTRIBUTION WIDTH 13.8 % (11.5-14.0)
[2020-04-13 16:27] LABS: HEMOGLOBIN 7.8 g/dL (12.0-15.5)
[2020-04-13] MEDS ORDERED: KETAMINE HCL INJ 500 MG/10 ML VIAL ONE (17:12)
[2020-04-13] MEDS ORDERED: DEXMEDETOMIDINE INJ 80 MCG/20 ML VIAL IV ONE (17:12)
[2020-04-13] MEDS ORDERED: MIDAZOLAM 2 MG/2 ML INJ ONE (17:12)
[2020-04-13] MEDS ORDERED: HYDROMORPHONE HCL INJ/PF 2 MG/ML AMPULE ONE (17:12)
[2020-04-13] MEDS ORDERED: FENTANYL CITRATE INJ/PF 100 MCG/2 ML AMPUL ONE (17:12)
[2020-04-13] MEDS ORDERED: EPHEDRINE SULFATE INJ 50 MG/1 ML AMPULE ONE (17:12)
[2020-04-13] MEDS ORDERED: PROPOFOL INJ 200 MG/20 ML VIAL IV ONE (17:13)
[2020-04-13] MEDS ORDERED: NORMAL SALINE 250 ML IV PRN ×2 (17:14)
[2020-04-13] MEDS ORDERED: ACETAMINOPHEN 1,000 MG/100 ML RTUPB IV ONE (17:49)
[2020-04-13] MEDS ORDERED: MEPERIDINE HCL/PF INJ 25 MG/1 ML DISP.SYRIN IV PRN (18:01)
[2020-04-13] MEDS ORDERED: FENTANYL CITRATE INJ/PF 100 MCG/2 ML AMPUL IV PRN ×3 (18:01)
[2020-04-13] MEDS ORDERED: PROMETHAZINE HCL INJ 25 MG/1 ML VIAL IV PRN ×2 (18:01)
[2020-04-13] MEDS ORDERED: DIPHENHYDRAMINE HCL 50 MG/ML VIAL IV PRN (18:01)
[2020-04-13] MEDS ORDERED: ONDANSETRON HCL INJ/PF 4 MG/2 ML SDV IV PRN (18:01)
[2020-04-13] MEDS ORDERED: OXYCODONE-ACETAMINOPHEN 5-325 MG TABLET PO PRN ×3 (18:01→19:15)
[2020-04-13] MEDS ORDERED: IBUPROFEN 800 MG TABLET PO PRN (19:15)
[2020-04-13] MEDS ORDERED: KETOROLAC TROMETHAMINE INJ/PF 30 MG/1 ML SDV IV PRN (19:15)
--- NOTE | 2020-04-13 21:48 | Operative Report ---
Operative Report DATE OF SURGERY: 04/13/20 PREOPERATIVE DIAGNOSIS: Abdominal pain. Hemoperitoneum. Anemia secondary to a cute blood loss POSTOPERATIVE DIAGNOSIS: Same as above. Large amount of old blood in abdomen including a large clot on omentum overlying the left ovary. Small simple appearing cyst right and left ovaries OPERATION: Diagnostic laparoscopy. Evacuation of hemoperitoneum SURGEON: LINDSAY THOMAS 1ST [employer] GLASS DESIGNER: ADA RAZA ANESTHESIA: GA TISSUE REMOVED OR ALTERED: Large amount of blood and clot from abdomen COMPLICATIONS: None ESTIMATED BLOOD LOSS: 500cc INTRAOPERATIVE FINDINGS: Normal appearing uterus, bilateral fallopian tubes, liver edge, gall bladder, appendix and spleen. The right ovary had a small simple appearing cyst less than 1 cm. Left ovary had a small simple appearing cyst and a small clot was stuck to the surface which is possible origin of the blood in pelvis but no acitve bleeding at site. Omentum with large organized clot which was overlying the pelvic organs. PROCEDURE: IV fluids: per anesthesia record Urinary output: 300 cc clear yellow urine emptied from bladder at beginning of procedure Findings: Large amount of blood with clots persent in abdomen. Normal-appearing uterus bilateral fallopian tubes, Appendix, liver edge, gall bladder and spleen. Right ovary with small 1 cm simple appearing cyst with no evidence of rupture. Left ovary with 1 cm cyst with simple appearance. There is a small clot adherent to left ovary but no oozing or definite site of ruputure. Omentum with large, adherent, organized clot in area overlying the pelvic organs. Position: To recovery room in stable condition Description of procedure: The patient was taken to the operating room and general anesthesia was administered and found to be adequate. She was then placed on the OR table in the dorsal lithotomy position. The Patient was prepped and draped in usual sterile fashion. Timeout was taken. A Kim retractor was used as well as a weighted speculum to visualize the cervix. The anterior lip of the cervix was then grasped with a single tooth tenaculum and an acorn uterine manipulator was placed. At this time attention was turned of the patient's abdomen and sterile gloves were donned a 1 cm infra umbilical incision was made vertically and carried down to the level of the rectus fascia. The rectus fascia was then grasped with 2 Gino clamps elevated and incised with Kilgore scissors. A digital sweep was done noting entry into the peritoneum. The fascia was tagged bilaterally with 0- vicryl suture. A #10 [place]ma trocar was positioned and CO2 gas was used to insufflate the abdomen to a quantity sufficient for the laparoscopy. The laparoscope was inserted and a survey was done of the abdomen pictures were obtained. 2 additional 5 mm ports were placed in the right and left lower quadrant under direct visualization. A large amount of blood with clots was seen in abdomen. A suction objective c developer was used to remove blood and clots from the pelvis. A large organized clot was noted on the omentum overlying the pelvic organs this was mostly removed with the suction objective c developer and a grasper. The right ovary was evaluated and appeared normal with a small simple cyst approximately 1 cm in size. The left ovary was evaluated and also appeared to have a 1 cm cyst with simple appearance. There was a small clot on the medial surface of the left ovary but no active bleeding was seen. The pelvis was i rrigated and the cul-de-sac was evaluated. Normal findings were noted in the posterior cul-de-sac. No additional blood was accumulating. A survey of the abdomen was done and the liver edge and gallbladder appeared normal. The appendix could not be seen. General surgery was consulted. Dr. Raza kindly assisted with the procedure, examining the liver, gallbladder, appendix, spleen and omentum. He further assess the bowel including the rectum. No abnormal findings were noted other than the organized clot on the omentum. Pictures were obtained. Any remaining blood was cleared from the abdomen and saline irrigation was used to irrigate the pelvis once more. No further bleeding was noted. At this point the procedure was terminated. All instrument removed from the patient's abdomen. Both 5 mm ports were removed under direct visualization and no bleeding was noted. CO2 gas was allowed to escape and the infraumbilical port was removed. The fascia was closed with 0 Vicryl suture. The skin was closed with 3-0 Monocryl in a series of interrupted stitiches. The skin incision was then clean dried and Dermabond was applied over the skin incision. All instrument sponge and needle counts were correct x3 for the procedure the patient tolerated the procedure well. She will proceed to recovery room in stable condition
[2020-04-14] MEDS: OXYCODONE-ACETAMINOPHEN 5-325 MG TABLET PO PRN ×4 (02:31→19:56)
[2020-04-14] MEDS: AMPICILLIN SODIUM/SULBACTAM NA 3 GM in NORMAL SALINE 100 ML IV SCH ×3 (05:09→17:45)
[2020-04-14 06:53] LABS: ABSOLUTE LYMPHOCYTES (AUTO) 1.1 10^3/uL (0.5-4.7); ABSOLUTE MONOCYTES (AUTO) 0.4 10^3/uL (0.1-1.4); ABSOLUTE NEUT (AUTO) 10.4 10^3/uL (1.7-8.2); BASOPHILS % (AUTO) 0.1 % (0-2); HEMATOCRIT 23.6 % (36.0-47.0); HEMOGLOBIN 8.2 g/dL (12.0-15.5); LYMPHOCYTES % (AUTO) 9.5 % (13-45); MEAN CORPUSCULAR HEMOGLOBIN 29.5 pg (27.0-33.4); MEAN CORPUSCULAR HGB CONC 34.7 g/dL (32.0-36.0); MEAN CORPUSCULAR VOLUME 85 fl (80-97); MONOCYTES % (AUTO) 3.5 % (3-13); PLATELET COUNT 276 10^3/uL (150-450); RED BLOOD COUNT 2.77 10^6/uL (3.72-5.28); RED CELL DISTRIBUTION WIDTH 13.9 % (11.5-14.0); SEGMENTED NEUTROPHILS % (AUTO) 86.9 % (42-78); TOTAL CELLS COUNTED % (AUTO) 100 %
[2020-04-14 07:09] LABS: ANION GAP 11 (5-19); BLOOD UREA NITROGEN 8 mg/dL (7-20); CALCIUM 8.8 mg/dL (8.4-10.2); CARBON DIOXIDE 24 mmol/L (22-30); CHLORIDE 104 mmol/L (98-107); GLUCOSE 100 mg/dL (75-110); POTASSIUM 4.4 mmol/L (3.6-5.0)
--- NOTE | 2020-04-14 08:02 | PDOC PROGRESS REPORT ---
Subjective Progress Note for:: 04/14/20 Subjective:: Doing well. Some pain overnight but improved with PRN medications. Has taken sips with no n/v. Not passing gas this am yet but has voided without incidence. Reason For Visit: ACUTE STREPTOCOCCAL PHARYNGITIS,LEFT OVARIAN CYST Physical Exam - Physical Exam Vital Signs: Temp Pulse Resp BP Pulse Ox 98.2 F 103 H 16 111/60 96 04/14/20 03:33 04/14/20 07:00 04/14/20 03:33 04/14/20 03:33 04/14/20 03:33 Intake & Output 04/13/20 04/14/20 04/15/20 06:59 06:59 06:59 Intake Total 2194 4449 Output Total 2255 Balance 2194 2194 Weight 78.2 kg 74.6 kg General appearance: PRESENT: no acute distress, cooperative Respiratory exam: PRESENT: clear to auscultation leola Cardiovascular exam: PRESENT: RRR, +S1, +S2 GI/Abdominal exam: PRESENT: hypoactive bowel sounds, soft, tenderness - Mild tenderness around incisions. No rebound or guarding Incision dry and intact Extremities exam: PRESENT: full ROM. ABSENT: calf tenderness, clubbing, pedal edema Musculoskeletal exam: PRESENT: full ROM Neurological exam: PRESENT: alert, awake, oriented to person, oriented to place, oriented to time Psychiatric exam: PRESENT: appropriate affect, normal mood. ABSENT: homicidal ideation, suicidal ideation Skin exam: PRESENT: dry, intact, warm. ABSENT: cyanosis, rash Result Laboratory Results: 04/14/20 06:06 04/14/20 06:06 04/11/20 04/13/20 04/14/20 13:53 15:47 06:06 WBC 8.0 12.0 H RBC 2.65 L 2.77 L Hgb 7.8 L 8.2 L Hct 22.4 L 23.6 L MCV 84 85 MCH 29.4 29.5 MCHC 34.8 34.7 RDW 13.8 13.9 Plt Count 253 276 Seg Neutrophils % 86.9 H Sodium Potassium Chloride Carbon Dioxide Anion Gap BUN Creatinine Est GFR ( Amer) Glucose Calcium Blood Type A POSITIVE Antibody Screen NEGATIVE 04/14/20 06:06 WBC RBC Hgb Hct MCV MCH MCHC RDW Plt Count Seg Neutrophils % Sodium 138.5 Potassium 4.4 Chloride 104 Carbon Dioxide 24 Anion Gap 11 BUN 8 Creatinine 0.57 Est GFR ( Amer) > 60 Glucose 100 Calcium 8.8 Blood Type Antibody Screen Impressions: Abdomen/Pelvis CT 04/11/20 13:10 IMPRESSION: 1. Small amount of free intraperitoneal fluid ; the attenuation of the fluid in the pelvis measures 56 Hounsfield units suggesting that it is complex and perhaps hemorrhagic. 2. 2.6 x 1.9 cm ovoid cystic lesion in the left adnexum with a thin high attenuation/enhancing rim (image 67 of series 3). An adnexal lesion and free intraperitoneal fluid represent 2 of the 3 components of [place] syndrome. Consider correlation with an pelvic transvaginal US. 3. Unable to identify the appendix. Transvaginal US 04/11/20 14:04 IMPRESSION: Enlarged left ovary with dominant left ovarian cyst. Complex free fluid in the left adnexa and pelvic cul-de-sac. Findings may represent a recently ruptured hemorrhagic ovarian follicle. No definite left ovarian mass is identified. No evidence of ovarian torsion. A follow-up pelvic ultrasound in 4- 6 weeks is recommended to confirm resolution of the left ovarian cyst. Abdomen Ultrasound 04/12/20 00:00 IMPRESSION: No window for safe paracentesis under ultrasound guidance. Guidance Needle Placement CT 04/12/20 00:00 IMPRESSION: SUCCESSFUL CT GUIDED PARACENTESIS. Retroperitoneal Abscess Drainage 04/12/20 00:00 IMPRESSION: SUCCESSFUL CT GUIDED PARACENTESIS. Assessment & Plan - Diagnosis (1) Abdominal pain Qualifiers: Abdominal location: left lower quadrant Qualified Code(s): R10.32 - Left lower quadrant pain Is this a current diagnosis for this admission?: Yes (2) Free fluid in pelvis Is this a current diagnosis for this admission?: Yes (3) Hemoperitoneum (nontraumatic) Is this a current diagnosis for this admission?: Yes (4) Left ovarian cyst Is this a current diagnosis for this admission?: Yes - Time Time Spent with patient: Less than 15 minutes Medications reviewed and adjusted accordingly: Yes Anticipated discharge: Home Anticipated DC Timeframe: within 24 hours - Plan Summary Plan Summary: 24 yo who is s/ Diagnostic laparoscopy, POD #1 Had evacuation of approximately 500cc blood yesterday from the abdomen. No active bleeding was identified. Source possibly left hemorrhagic cyst rupture vs omentum source. Dr. Raza kindly assisted and examined the appendix, spleen, liver, gall bladder and bowel which all appeared normal. -VSS this am. -Hgb yesterday 7.8 and CBC this am is pending -Incisions dry and intact -Tolerating PO, may advance to regular diet -Encourage ambulation -Once passing gas and ambulating can be discharged from [facility] stand point -F/u in [facility] [facility] office in 2 wks after discharge
[2020-04-14] MEDS: FERROUS SULFATE 325 MG TABLET PO SCH ×2 (08:28→17:45)
[2020-04-14] MEDS: LABETALOL HCL 200 MG TABLET PO SCH ×2 (09:56→22:16)
[2020-04-14] MEDS: FAMOTIDINE INJ/PF 20 MG/2 ML SDV IV SCH ×2 (09:57→22:16)
--- NOTE | 2020-04-14 11:44 | PDOC PROGRESS REPORT ---
Subjective Progress Note for:: 04/14/20 Subjective:: Patient still complaining of moderate abdominal discomfort, resolved with the administration of oral narcotics, tolerating clear liquids Reason For Visit: ACUTE STREPTOCOCCAL PHARYNGITIS,LEFT OVARIAN CYST Physical Exam Vital Signs: Temp Pulse Resp BP Pulse Ox 97.6 F 98 16 129/78 H 98 04/14/20 07:41 04/14/20 07:41 04/14/20 07:41 04/14/20 07:41 04/14/20 07:41 Intake & Output 04/13/20 04/14/20 04/15/20 06:59 06:59 06:59 Intake Total 2194 4449 Output Total 2255 Balance 2194 2194 Weight 78.2 kg 74.6 kg General appearance: PRESENT: no acute distress, well-developed Respiratory exam: PRESENT: clear to auscultation leola Cardiovascular exam: PRESENT: RRR GI/Abdominal exam: PRESENT: distended, soft, tenderness - Slightly tender diffusely, other - All surgical incisions are clean, dry, and intact Results Laboratory Results: 04/14/20 06:06 04/14/20 06:06 04/11/20 04/13/20 04/14/20 13:53 15:47 06:06 WBC 8.0 12.0 H RBC 2.65 L 2.77 L Hgb 7.8 L 8.2 L Hct 22.4 L 23.6 L MCV 84 85 MCH 29.4 29.5 MCHC 34.8 34.7 RDW 13.8 13.9 Plt Count 253 276 Seg Neutrophils % 86.9 H Sodium Potassium Chloride Carbon Dioxide Anion Gap BUN Creatinine Est GFR ( Amer) Glucose Calcium Blood Type A POSITIVE Antibody Screen NEGATIVE 04/14/20 06:06 WBC RBC Hgb Hct MCV MCH MCHC RDW Plt Count Seg Neutrophils % Sodium 138.5 Potassium 4.4 Chloride 104 Carbon Dioxide 24 Anion Gap 11 BUN 8 Creatinine 0.57 Est GFR ( Amer) > 60 Glucose 100 Calcium 8.8 Blood Type Antibody Screen Impressions: Abdomen/Pelvis CT 04/11/20 13:10 IMPRESSION: 1. Small amount of free intraperitoneal fluid ; the attenuation of the fluid in the pelvis measures 56 Hounsfield units suggesting that it is complex and perhaps hemorrhagic. 2. 2.6 x 1.9 cm ovoid cystic lesion in the left adnexum with a thin high attenuation/enhancing rim (image 67 of series 3). An adnexal lesion and free intraperitoneal fluid represent 2 of the 3 components of [place] syndrome. Consider correlation with an pelvic transvaginal US. 3. Unable to identify the appendix. Transvaginal US 04/11/20 14:04 IMPRESSION: Enlarged left ovary with dominant left ovarian cyst. Complex free fluid in the left adnexa and pelvic cul-de-sac. Findings may represent a recently ruptured hemorrhagic ovarian follicle. No definite left ovarian mass is identified. No evidence of ovarian torsion. A follow-up pelvic ultrasound in 4- 6 weeks is recommended to confirm resolution of the left ovarian cyst. Abdomen Ultrasound 04/12/20 00:00 IMPRESSION: No window for safe paracentesis under ultrasound guidance. Guidance Needle Placement CT 04/12/20 00:00 IMPRESSION: SUCCESSFUL CT GUIDED PARACENTESIS. Retroperitoneal Abscess Drainage 04/12/20 00:00 IMPRESSION: SUCCESSFUL CT GUIDED PARACENTESIS. Assessment & Plan - Diagnosis (1) Abdominal pain Qualifiers: Abdominal location: left lower quadrant Qualified Code(s): R10.32 - Left lower quadrant pain (2) Acute streptococcal pharyngitis Is this a current diagnosis for this admission?: Yes (3) Hemoperitoneum (nontraumatic) Is this a current diagnosis for this admission?: Yes (4) Left ovarian cyst Is this a current diagnosis for this admission?: Yes - Time Time Spent: 30 to 50 Minutes Critical Time spent with patient: 25-34 minutes Medications reviewed and adjusted accordingly: Yes Anticipated Discharge Disposition: Home, Self Care Anticipated Discharge Timeframe: When medically stable - Plan Summary Plan Summary: Assessment: Postoperative day number 0 following diagnostic and therapeutic laparoscopy for hemoperitoneum Hemoperitoneum of unknown cause; ruptured left ovarian cyst versus spontaneous omental bleed is a possibility White blood cell count elevated 12,000 H&H 8.2 and 23.6 today stable since yesterday Physical exam shows a slight distended abdomen, soft; however, it is slightly and diffusely tender Patient affected by streptococcal pharyngitis currently treated with Unasyn Patient reports her last menstrual at end of February and to have started her menses today History of IUD malposition removed in December 2019 The patient admits to be sexually active and to use condom as a control de vice Plan: Continue clear liquids as the physical exam of her abdomen does not warrant diet increase Send blood sample for beta hCG level stat If her CBC is stable tomorrow, diet can be advanced and the patient can be possibly discharged to home
--- NOTE | 2020-04-14 14:14 | PDOC PROGRESS REPORT ---
Subjective Progress Note for:: 04/14/20 Subjective:: Patient was seen on morning rounds. She is resting in bed comfortably. Complains of diffuse abdominal pain, exacerbated with movement. She is ambulatory with moderate abdominal pain. She is tolerating clear liquids. Producing urine, without symptoms. Reports flatulence, denies bowel movement. Palpitations have resolved, though she continues to experience orthostasis and intermittent shortness of breath on exertion. Otherwise denies generalized weakness, headache, change in vision, CP, cough, N/V/D, or lower extremity swelling. Reason For Visit: ACUTE STREPTOCOCCAL PHARYNGITIS,LEFT OVARIAN CYST Physical Exam Vital Signs: Temp Pulse Resp BP Pulse Ox 97.6 F 98 16 129/78 H 98 04/14/20 10:00 04/14/20 07:41 04/14/20 07:41 04/14/20 07:41 04/14/20 07:41 Intake & Output 04/13/20 04/14/20 04/15/20 06:59 06:59 06:59 Intake Total 2194 4449 Output Total 2255 Balance 2194 2194 Weight 78.2 kg 74.6 kg General appearance: PRESENT: no acute distress, cooperative, well-developed Head exam: PRESENT: atraumatic, normocephalic Eye exam: PRESENT: EOMI, PERRLA. ABSENT: conjunctiva pale Ear exam: PRESENT: normal external ear exam Mouth exam: PRESENT: moist, tongue midline Throat exam: PRESENT: tonsillar erythema - Minimal Neck exam: PRESENT: full ROM. ABSENT: lymphadenopathy, tenderness, thyromegaly Respiratory exam: PRESENT: clear to auscultation leola, symmetrical, unlabored. ABSENT: crackles, tachypnea Cardiovascular exam: PRESENT: RRR, +S1, +S2. ABSENT: diastolic murmur, systolic murmur GI/Abdominal exam: PRESENT: distended, soft, tenderness - diffusely, other - Surgical incisions are clean, dry and intact. Without drainage. Rectal exam: PRESENT: deferred Extremities exam: PRESENT: full ROM. ABSENT: clubbing, pedal edema, tenderness Musculoskeletal exam: PRESENT: ambulatory, full ROM. ABSENT: deformity, dislocation Neurological exam: PRESENT: alert, awake, oriented to person, oriented to place, oriented to time, oriented to situation, CN II-XII grossly intact. ABSENT: altered, motor sensory deficit Psychiatric exam: PRESENT: appropriate affect, normal mood Skin exam: PRESENT: dry, intact, warm. ABSENT: rash Results Laboratory Results: 04/14/20 06:06 04/14/20 06:06 04/11/20 04/13/20 04/14/20 13:53 15:47 06:06 WBC 8.0 12.0 H RBC 2.65 L 2.77 L Hgb 7.8 L 8.2 L Hct 22.4 L 23.6 L MCV 84 85 MCH 29.4 29.5 MCHC 34.8 34.7 RDW 13.8 13.9 Plt Count 253 276 Seg Neutrophils % 86.9 H Sodium Potassium Chloride Carbon Dioxide Anion Gap BUN Creatinine Est GFR ( Amer) Glucose Calcium Blood Type A POSITIVE Antibody Screen NEGATIVE 04/14/20 06:06 WBC RBC Hgb Hct MCV MCH MCHC RDW Plt Count Seg Neutrophils % Sodium 138.5 Potassium 4.4 Chloride 104 Carbon Dioxide 24 Anion Gap 11 BUN 8 Creatinine 0.57 Est GFR ( Amer) > 60 Glucose 100 Calcium 8.8 Blood Type Antibody Screen Impressions: Abdomen/Pelvis CT 04/11/20 13:10 IMPRESSION: 1. Small amount of free intraperitoneal fluid ; the attenuation of the fluid in the pelvis measures 56 Hounsfield units suggesting that it is complex and perhaps hemorrhagic. 2. 2.6 x 1.9 cm ovoid cystic lesion in the left adnexum with a thin high attenuation/enhancing rim (image 67 of series 3). An adnexal lesion and free intraperitoneal fluid represent 2 of the 3 components of [place] syndrome. Consider correlation with an pelvic transvaginal US. 3. Unable to identify the appendix. Transvaginal US 04/11/20 14:04 IMPRESSION: Enlarged left ovary with dominant left ovarian cyst. Complex free fluid in the left adnexa and pelvic cul-de-sac. Findings may represent a recently ruptured hemorrhagic ovarian follicle. No definite left ovarian mass is identified. No evidence of ovarian torsion. A follow-up pelvic ultrasound in 4- 6 weeks is recommended to confirm resolution of the left ovarian cyst. Abdomen Ultrasound 04/12/20 00:00 IMPRESSION: No window for safe paracentesis under ultrasound guidance. Guidance Needle Placement CT 04/12/20 00:00 IMPRESSION: SUCCESSFUL CT GUIDED PARACENTESIS. Retroperitoneal Abscess Drainage 04/12/20 00:00 IMPRESSION: SUCCESSFUL CT GUIDED PARACENTESIS. Assessment and Plan - Diagnosis (1) Abdominal pain Qualifiers: Abdominal location: left lower quadrant Qualified Code(s): R10.32 - Left lower quadrant pain Is this a current diagnosis for this admission?: Yes (2) Left ovarian cyst Is this a current diagnosis for this admission?: Yes (3) Free fluid in pelvis Is this a current diagnosis for this admission?: Yes (4) Menorrhagia Qualifiers: Menorrhagia type: with regular cycle Qualified Code(s): N92.0 - Excessive and frequent menstruation with regular cycle Is this a current diagnosis for this admission?: Yes (5) Normochromic normocytic anemia Is this a current diagnosis for this admission?: Yes (6) Tachycardia Is this a current diagnosis for this admission?: Yes (7) Subclinical hypothyroidism Is this a current diagnosis for this admission?: Yes (8) Acute streptococcal pharyngitis Is this a current diagnosis for this admission?: Yes (9) Leukocytosis Qualifiers: Leukocytosis type: other Qualified Code(s): D72.828 - Other elevated white blood cell count Is this a current diagnosis for this admission?: Yes - Plan Summary Summary: Patient will be admitted to the medical service on the medical floor on observation status where she will receive routine supportive and symptomatic cares. She will be treated with IV antibiotics utilizing cefepime. She will re ceive IV fluids using D5LR at 167 mL/h. She will use Ativan 1 mg IV every 4 hours as needed for anxiety or restlessness. She will use morphine sulfate 2 to 4 mg IV every 2 hours as needed for pain. CBCs, metabolic profiles and additional laboratory and/or radiographic evaluations will be obtained as needed. A surgical consultation with Dr. Raza has been obtained by the emergency room physician and he will continue to see the patient as needed. A gynecology consultation with Dr. Fernandez will be obtained for evaluation and consideration of a possible culdocentesis 04/12/2020 Abdominal pain-the patient is on her way down to radiology for paracentesis. I have ordered cell count, Gram stain and culture as well as chemistries. Free fluid in pelvis-continue antibiotic therapy at this time Left ovarian cyst-await results of paracentesis to see if this was a possible hemorrhagic cyst versus ruptured ovarian cyst. Anemia-hemoglobin is down to 8.0 from 10.8. This would suggest possible hem orrhagic cyst. Iron studies reveal a serum iron of 34.3 with TIBC 321, percent saturation 11 and ferritin of 40. Will recheck CBC in the morning. No reason for transfusion at this time. Menorrhagia-certainly could be contributing to the anemia. No acute intervention at this time. Hypothyroidism-TSH is elevated. I will check free T3 and free T4. Tachycardia-resume labetalol 100 mg twice daily 04/13/2020 Abdominal pain: Paracentesis performed yesterday. Fluid RBC of 5,232,500. -Patient is followed by Dr. Man, [facility]. Recommends diagnostic laparoscopy with evacuation of hemoperitoneum and possible removal of left ovarian cyst/control of bleeding. -Patient is followed by surgery. Agreeing to [facility] treatment plan. Free fluid in pelvis: Found to be laz blood on paracentesis. -Peritoneal Gram stain with no growth in 24 hours. Continue with Unasyn. Consider discontinue if no growth in 48 hours. -Treatment as stated above. Left ovarian Cyst: Treatment pending results of diagnostic laparoscopy. Anemia: Hemoglobin continues to trend downward 8.0 ->7.6.Suggestive of possible hemorrhagic cyst. -Repeat CBC with hemoglobin 7.8. Transfusion not indicated at this time. -Iron studies significant for low iron with normal TIBC and ferritin. Consider iron supplementation upon discharge. -Continue to monitor with repeat CBC in the morning. Menorrhagia: Contributing to the anemia. -No acute intervention at this time. Subacute hypothyroidism: TSH is elevated (6.43), free T4 and free T3 within normal limits. -No intervention indicated at this time. Tachycardia: Heart rate continues to be in the 100s. -Continue with labetalol. -May utilize Lopressor if heart rate greater than 120. -Continue to monitor, expect to see improvement with current treatment r egimen. Positive group A strep rapid: As noted in the ED. -Currently on Unasyn for intra-abdominal coverage (see above). This provides coverage for group A strep. -We will change antibiotic regimen pending peritoneal fluid growth. 04/14/2020 Abdominal pain: day 0 s/p diagnostic/therapeutic laparoscopy hemoperitoneum of unknown cause. Suspect ruptured left ovarian cyst vs omental bleed. No active bleeding was identified. Followed Dr. Andujar, surgery, and Dr. Man, OBGYN; notes were reviewed in detail. Patient is stable. She is ambulating and has passed gas. She is tolerating PO intake w/o complaints. Will continue with liquid diet today, per surgeries recommendations. Plan to advance diet in the a.m. Leukocytosis: WBC 12.0. Suspect secondary to recenty surgery. Repeat CBC in a.m. Free fluid in pelvis: An additional 500 cc of blood evacuated yesterday. Peritoneal fluid culture with no growth in 48 hours. We will discontinue Unasyn at this time. Left ovarian cyst: Possibly the source of bleeding, though no active bleeding was identified. She is to follow-up in the [facility] office in 2 weeks after discharge. Anemia: 7.8 -> 8.2, suggesting no acute bleed at this time. Repeat CBC in the morning. Iron and vitamin C supplementation initiated. If CBC stabilizes will advance diet and discharge. Menorrhagia: Certainly may be a factor in her anemia. LNMP end of February. Serum HCG 04/11/2020 negative. Subacute hypothyroidism: TSH (6.43), FT4 and FT3 within normal limits. Pt repo rts FMHx hypothyroidsm. Recommend f/u with PCP, otherwise no intervention indicated at this time. Tachycardia: HR in low 100s despite home dose labetaolol 100mg BID. Suspect secondary to anemia. Continue with labetalol. Continue to monitor with tele. Monitor VS. Positive Group A Strep rapid: She has received 4 days Unasyn treatment. Discontinue. Initiate further treatment with Penicillin V 500mg. Leukocytosis: Suspect secondary to surgery. Follow up CBC in the a.m. - Time Time Spent with patient: 15-24 minutes Anticipated Discharge Disposition: Home, Self Care Anticipated Discharge Timeframe: within 24 hours
[2020-04-14] MEDS: ASCORBIC ACID 500 MG TABLET PO SCH (17:45)
[2020-04-14] MEDS: RINGERS SOLUTION,LACTATED 1,000 ML IV PRN (22:21)
[2020-04-14] MEDS: HYDROMORPHONE HCL INJ/PF 2 MG/ML AMPULE IV PRN (22:31)
[2020-04-15] MEDS: AMPICILLIN SODIUM/SULBACTAM NA 3 GM in NORMAL SALINE 100 ML IV SCH (00:14)
[2020-04-15] MEDS: PENICILLIN V POTASSIUM 500 MG TABLET PO SCH ×2 (05:45→17:05)
[2020-04-15] MEDS: HYDROMORPHONE HCL INJ/PF 2 MG/ML AMPULE IV PRN (05:50)
[2020-04-15 06:44] LABS: ABSOLUTE EOSINOPHILS # (AUTO) 0.2 10^3/uL (0.0-0.6); ABSOLUTE LYMPHOCYTES (AUTO) 2.6 10^3/uL (0.5-4.7); ABSOLUTE MONOCYTES (AUTO) 0.4 10^3/uL (0.1-1.4); ABSOLUTE NEUT (AUTO) 4.8 10^3/uL (1.7-8.2); BASOPHILS % (AUTO) 0.5 % (0-2); EOSINOPHILS % (AUTO) 2.2 % (0-6); HEMATOCRIT 22.8 % (36.0-47.0); LYMPHOCYTES % (AUTO) 32.1 % (13-45); MEAN CORPUSCULAR HEMOGLOBIN 30.1 pg (27.0-33.4); MEAN CORPUSCULAR HGB CONC 35.3 g/dL (32.0-36.0); MEAN CORPUSCULAR VOLUME 85 fl (80-97); MONOCYTES % (AUTO) 5.5 % (3-13); PLATELET COUNT 289 10^3/uL (150-450); RED BLOOD COUNT 2.68 10^6/uL (3.72-5.28); SEGMENTED NEUTROPHILS % (AUTO) 59.7 % (42-78); TOTAL CELLS COUNTED % (AUTO) 100 %; WHITE BLOOD COUNT 8.1 10^3/uL (4.0-10.5)
[2020-04-15 07:08] LABS: ANION GAP 9 (5-19); BLOOD UREA NITROGEN 6 mg/dL (7-20); CALCIUM 8.5 mg/dL (8.4-10.2); CARBON DIOXIDE 26 mmol/L (22-30); CHLORIDE 106 mmol/L (98-107); GLUCOSE 77 mg/dL (75-110); POTASSIUM 3.6 mmol/L (3.6-5.0)
[2020-04-15] MEDS: LABETALOL HCL 200 MG TABLET PO SCH ×2 (09:25→21:50)
[2020-04-15] MEDS: FERROUS SULFATE 325 MG TABLET PO SCH ×2 (09:26→17:04)
[2020-04-15] MEDS: FAMOTIDINE INJ/PF 20 MG/2 ML SDV IV SCH (09:26)
[2020-04-15] MEDS: ASCORBIC ACID 500 MG TABLET PO SCH ×2 (09:26→17:04)
[2020-04-15] MEDS ORDERED: NAPROXEN 250 MG TABLET PO PRN (13:34)
--- NOTE | 2020-04-15 13:38 | PDOC PROGRESS REPORT ---
Subjective Progress Note for:: 04/15/20 Subjective:: Patient complaining of mild abdominal discomfort, clearly with dilated, flatus present Reason For Visit: ACUTE STREPTOCOCCAL PHARYNGITIS,LEFT OVARIAN CYST Physical Exam Vital Signs: Temp Pulse Resp BP Pulse Ox 98.2 F 106 H 17 120/69 99 04/15/20 11:36 04/15/20 11:36 04/15/20 11:36 04/15/20 11:36 04/15/20 11:36 Intake & Output 04/14/20 04/15/20 04/16/20 06:59 06:59 06:59 Intake Total 4449 1877 Output Total 2255 Balance 2194 1877 Weight 74.6 kg 76.2 kg General appearance: PRESENT: no acute distress, thin, well-developed Respiratory exam: PRESENT: clear to auscultation leola Cardiovascular exam: PRESENT: RRR GI/Abdominal exam: PRESENT: distended - Mildly, soft Results Laboratory Results: 04/15/20 06:03 04/15/20 06:03 04/15/20 04/15/20 06:03 06:03 WBC 8.1 RBC 2.68 L Hgb 8.0 L Hct 22.8 L MCV 85 MCH 30.1 MCHC 35.3 RDW 14.0 Plt Count 289 Seg Neutrophils % 59.7 Sodium 141.1 Potassium 3.6 Chloride 106 Carbon Dioxide 26 Anion Gap 9 BUN 6 L Creatinine 0.61 Est GFR ( Amer) > 60 Glucose 77 Calcium 8.5 04/12/20 13:40 Peritoneal Gram Stain - Final Impressions: Abdomen/Pelvis CT 04/11/20 13:10 IMPRESSION: 1. Small amount of free intraperitoneal fluid ; the attenuation of the fluid in the pelvis measures 56 Hounsfield units suggesting that it is complex and perhaps hemorrhagic. 2. 2.6 x 1.9 cm ovoid cystic lesion in the left adnexum with a thin high attenuation/enhancing rim (image 67 of series 3). An adnexal lesion and free intraperitoneal fluid represent 2 of the 3 components of [place] syndrome. Consider correlation with an pelvic transvaginal US. 3. Unable to identify the appendix. Transvaginal US 04/11/20 14:04 IMPRESSION: Enlarged left ovary with dominant left ovarian cyst. Complex free fluid in the left adnexa and pelvic cul-de-sac. Findings may represent a recently ruptured hemorrhagic ovarian follicle. No definite left ovarian mass is identified. No evidence of ovarian torsion. A follow-up pelvic ultrasound in 4- 6 weeks is recommended to confirm resolution of the left ovarian cyst. Abdomen Ultrasound 04/12/20 00:00 IMPRESSION: No window for safe paracentesis under ultrasound guidance. Guidance Needle Placement CT 04/12/20 00:00 IMPRESSION: SUCCESSFUL CT GUIDED PARACENTESIS. Retroperitoneal Abscess Drainage 04/12/20 00:00 IMPRESSION: SUCCESSFUL CT GUIDED PARACENTESIS. Assessment & Plan - Diagnosis (1) Abdominal pain Qualifiers: Abdominal location: left lower quadrant Qualified Code(s): R10.32 - Left lower quadrant pain Is this a current diagnosis for this admission?: Yes (2) Acute streptococcal pharyngitis Is this a current diagnosis for this admission?: Yes (3) Hemoperitoneum (nontraumatic) Is this a current diagnosis for this admission?: Yes (4) Left ovarian cyst Is this a current diagnosis for this admission?: Yes - Time Anticipated Discharge Disposition: Home, Self Care Anticipated Discharge Timeframe: within 24 hours - Plan Summary Plan Summary: Assessment: Postoperative day #2 following laparoscopy for a hemoperitoneum Because of the hemoperitoneum is most likely bleeding ovarian cyst Patient tolerating clear liquid diet Flatus present H&H stable Plan: No acute general surgery issues identified Patient can be discharged to home safely at this point Discontinue narcotics Patient to be discharged home on Tylenol and NSAIDs only Follow-up with the [facility] office in 1 to 2 weeks I will sign off Please call me with questions
--- NOTE | 2020-04-15 15:51 | PDOC PROGRESS REPORT ---
Subjective Progress Note for:: 04/15/20 Subjective:: No adverse events overnight. She said her abdominal pain feels little bit worse today, just more like a diffuse soreness and not any sharp acute pain. She says she feels bad asking for pain medication. Reason For Visit: ACUTE STREPTOCOCCAL PHARYNGITIS,LEFT OVARIAN CYST Physical Exam Vital Signs: Temp Pulse Resp BP Pulse Ox 98.2 F 104 H 17 120/69 99 04/15/20 11:36 04/15/20 14:00 04/15/20 11:36 04/15/20 11:36 04/15/20 11:36 Intake & Output 04/14/20 04/15/20 04/16/20 06:59 06:59 06:59 Intake Total 4449 1877 Output Total 2255 Balance 2194 1877 Weight 74.6 kg 76.2 kg General appearance: PRESENT: no acute distress, cooperative, well-developed Head exam: PRESENT: atraumatic, normocephalic Eye exam: PRESENT: EOMI, PERRLA. ABSENT: conjunctiva pale Ear exam: PRESENT: normal external ear exam Mouth exam: PRESENT: moist, tongue midline Throat exam: PRESENT: tonsillar erythema - Minimal Neck exam: PRESENT: full ROM. ABSENT: lymphadenopathy, tenderness, thyromegaly Respiratory exam: PRESENT: clear to auscultation leola, symmetrical, unlabored. ABSENT: crackles, tachypnea Cardiovascular exam: PRESENT: RRR, +S1, +S2. ABSENT: diastolic murmur, systolic murmur GI/Abdominal exam: PRESENT: distended, soft, tenderness - diffusely, other - Surgical incisions are clean, dry and intact. Without drainage. Rectal exam: PRESENT: deferred Extremities exam: PRESENT: full ROM. ABSENT: clubbing, pedal edema, tenderness Musculoskeletal exam: PRESENT: ambulatory, full ROM. ABSENT: deformity, dislocation Neurological exam: PRESENT: alert, awake, oriented to person, oriented to place, oriented to time, oriented to situation, CN II-XII grossly intact. Results Laboratory Results: 04/15/20 06:03 04/15/20 06:03 04/15/20 04/15/20 06:03 06:03 WBC 8.1 RBC 2.68 L Hgb 8.0 L Hct 22.8 L MCV 85 MCH 30.1 MCHC 35.3 RDW 14.0 Plt Count 289 Seg Neutrophils % 59.7 Sodium 141.1 Potassium 3.6 Chloride 106 Carbon Dioxide 26 Anion Gap 9 BUN 6 L Creatinine 0.61 Est GFR ( Amer) > 60 Glucose 77 Calcium 8.5 04/12/20 13:40 Peritoneal Gram Stain - Final Impressions: Abdomen/Pelvis CT 04/11/20 13:10 IMPRESSION: 1. Small amount of free intraperitoneal fluid ; the attenuation of the fluid in the pelvis measures 56 Hounsfield units suggesting that it is complex and perhaps hemorrhagic. 2. 2.6 x 1.9 cm ovoid cystic lesion in the left adnexum with a thin high attenuation/enhancing rim (image 67 of series 3). 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 Consider correlation with an pelvic transvaginal US. 3. Unable to identify the appendix. Transvaginal US 04/11/20 14:04 IMPRESSION: Enlarged left ovary with dominant left ovarian cyst. Complex free fluid in the left adnexa and pelvic cul-de-sac. Findings may represent a recently ruptured hemorrhagic ovarian follicle. No definite left ovarian mass is identified. No evidence of ovarian torsion. A follow-up pelvic ultrasound in 4- 6 weeks is recommended to confirm resolution of the left ovarian cyst. Abdomen Ultrasound 04/12/20 00:00 IMPRESSION: No window for safe paracentesis under ultrasound guidance. Guidance Needle Placement CT 04/12/20 00:00 IMPRESSION: SUCCESSFUL CT GUIDED PARACENTESIS. Retroperitoneal Abscess Drainage 04/12/20 00:00 IMPRESSION: SUCCESSFUL CT GUIDED PARACENTESIS. Assessment and Plan - Diagnosis (1) Acute streptococcal pharyngitis Is this a current diagnosis for this admission?: Yes Plan: On oral penicillin, tolerating an advanced diet (2) Hemoperitoneum (nontraumatic) Is this a current diagnosis for this admission?: Yes Plan: Status post evacuation, she probably has some residual inflammation that is causing her pain. We will try to get it under little bit better control tonight and then hopefully she will be feeling better tomorrow as we anticipate sending her home with using Tylenol and NSAIDs for pain control. (3) Left ovarian cyst Is this a current diagnosis for this admission?: Yes - Plan Summary Summary: Patient will be admitted to the medical service on the medical floor on observation status where she will receive routine supportive and symptomatic cares. She will be treated with IV antibiotics utilizing cefepime. She will receive IV fluids using D5LR at 167 mL/h. She will use Ativan 1 mg IV every 4 hours as needed for anxiety or restlessness. She will use morphine sulfate 2 to 4 mg IV every 2 hours as needed for pain. CBCs, metabolic profiles and additional laboratory and/or radiographic evaluations will be obtained as needed . A surgical consultation with Dr. Raza has been obtained by the emergency room physician and he will continue to see the patient as needed. A gynecology consultation with Dr. Fernandez will be obtained for evaluation and consideration of a possible culdocentesis 04/12/2020 Abdominal pain-the patient is on her way down to radiology for paracentesis. I have ordered cell count, Gram stain and culture as well as chemistries. Free fluid in pelvis-continue antibiotic therapy at this time Left ovarian cyst-await results of paracentesis to see if this was a possible hemorrhagic cyst versus ruptured ovarian cyst. Anemia-hemoglobin is down to 8.0 from 10.8. This would suggest possible hemorrhagic cyst. Iron studies reveal a serum iron of 34.3 with TIBC 321, percent saturation 11 and ferritin of 40. Will recheck CBC in the morning. No reason for transfusion at this time. Menorrhagia-certainly could be contributing to the anemia. No acute intervention at this time. Hypothyroidism-TSH is elevated. I will check free T3 and free T4. Tachycardia-resume labetalol 100 mg twice daily 04/13/2020 Abdominal pain: Paracentesis performed yesterday. Fluid RBC of 5,232,500. -Patient is followed by Dr. Man, [employer]. Recommends diagnostic laparoscopy with evacuation of hemoperitoneum and possible removal of left ovarian cyst/control of bleeding. -Patient is followed by surgery. Agreeing to [employer] treatment plan. Free fluid in pelvis: Found to be laz blood on paracentesis. -Peritoneal Gram stain with no growth in 24 hours. Continue with Unasyn. Consider discontinue if no growth in 48 hours. -Treatment as stated above. Left ovarian Cyst: Treatment pending results of diagnostic laparoscopy. Anemia: Hemoglobin continues to trend downward 8.0 ->7.6.Suggestive of possible hemorrhagic cyst. -Repeat CBC with hemoglobin 7.8. Transfusion not indicated at this time. -Iron studies significant for low iron with normal TIBC and ferritin. Consider iron supplementation upon discharge. -Continue to monitor with repeat CBC in the morning. Menorrhagia: Contributing to the anemia. -No acute intervention at this time. Subacute hypothyroidism: TSH is elevated (6.43), free T4 and free T3 within normal limits. -No intervention indicated at this time. Tachycardia: Heart rate continues to be in the 100s. -Continue with labetalol. -May utilize Lopressor if heart rate greater than 120. -Continue to monitor, expect to see improvement with current treatment regimen. Positive group A strep rapid: As noted in the ED. -Currently on Unasyn for intra-abdominal coverage (see above). This provides coverage for group A strep. -We will change antibiotic regimen pending peritoneal fluid growth. 04/14/2020 Abdominal pain: day 0 s/p diagnostic/therapeutic laparoscopy hemoperitoneum of unknown cause. Suspect ruptured left ovarian cyst vs omental bleed. No active bleeding was identified. Followed Dr. Andujar, surgery, and Dr. Man, OBGYN; notes were reviewed in detail. Patient is stable. She is ambulating and has passed gas. She is tolerating PO intake w/o complaints. Will continue with liquid diet today, per surgeries recommendations. Plan to advance diet in the a.m. Leukocytosis: WBC 12.0. Suspect secondary to recenty surgery. Repeat CBC in a.m. Free fluid in pelvis: An additional 500 cc of blood evacuated yesterday. Peritoneal fluid culture with no growth in 48 hours. We will discontinue Unasyn at this time. Left ovarian cyst: Possibly the source of bleeding, though no active bleeding was identified. She is to follow-up in the [facility] office in 2 weeks after discharge. Anemia: 7.8 -> 8.2, suggesting no acute bleed at this time. Repeat CBC in the m orning. Iron and vitamin C supplementation initiated. If CBC stabilizes will advance diet and discharge. Menorrhagia: Certainly may be a factor in her anemia. [facility] end of February. Serum HCG 04/11/2020 negative. Subacute hypothyroidism: TSH (6.43), FT4 and FT3 within normal limits. Pt reports FMHx hypothyroidsm. Recommend f/u with PCP, otherwise no intervention indicated at this time. Tachycardia: HR in low 100s despite home dose labetaolol 100mg BID. Suspect secondary to anemia. Continue with labetalol. Continue to monitor with tele. Monitor VS. Positive Group A Strep rapid: She has received 4 days Unasyn treatment. Discontinue. Initiate further treatment with Penicillin V 500mg. Leukocytosis: Suspect secondary to surgery. Follow up CBC in the a.m. - Time Time Spent with patient: 15-24 minutes Anticipated Discharge Disposition: Home, Self Care Anticipated Discharge Timeframe: within 24 hours
[2020-04-15] MEDS: ACETAMINOPHEN 325 MG TABLET PO PRN (18:16)
[2020-04-16] MEDS: ACETAMINOPHEN 325 MG TABLET PO PRN ×2 (02:23→09:10)
[2020-04-16] MEDS ORDERED: PENICILLIN V POTASSIUM 500 MG TABLET ONE (06:03)
[2020-04-16] MEDS: PENICILLIN V POTASSIUM 500 MG TABLET PO SCH (06:28)
[2020-04-16] MEDS: RINGERS SOLUTION,LACTATED 1,000 ML IV PRN (07:49)
[2020-04-16] MEDS ORDERED: INFLUENZA QUAD (6MOS+) 2020-21 VAC 0.5 ML SYR IM ONE (08:00)
[2020-04-16] MEDS: LABETALOL HCL 200 MG TABLET PO SCH (09:09)
[2020-04-16] MEDS: ASCORBIC ACID 500 MG TABLET PO SCH (09:09)
[2020-04-16] MEDS: FERROUS SULFATE 325 MG TABLET PO SCH (09:09)
[2020-04-16 12:06] VITALS: BP 116/87
--- NOTE | 2020-04-16 14:46 | PDOC DISCHARGE SUMMARY ---
Impression - Admit/DC Date/PCP Admission Date/Primary Care Provider: 04/11/20 18:32 SANTOSH MANLEY PA-C Discharge Date: 04/16/20 - Discharge Diagnosis (1) Acute streptococcal pharyngitis Is this a current diagnosis for this admission?: Yes (2) Hemoperitoneum (nontraumatic) Is this a current diagnosis for this admission?: Yes (3) Left ovarian cyst Is this a current diagnosis for this admission?: Yes - Assessment Summary: Patient will be admitted to the medical service on the medical floor on observation status where she will receive routine supportive and symptomatic cares. She will be treated with IV antibiotics utilizing cefepime. She will receive IV fluids using D5LR at 167 mL/h. She will use Ativan 1 mg IV every 4 hours as needed for anxiety or restlessness. She will use morphine sulfate 2 to 4 mg IV every 2 hours as needed for pain. CBCs, metabolic profiles and additional laboratory and/or radiographic evaluations will be obtained as needed. A surgical consultation with Dr. Raza has been obtained by the emergency room physician and he will continue to see the patient as needed. A gynecology consultation with Dr. Fernandez will be obtained for evaluation and consideration of a possible culdocentesis 04/12/2020 Abdominal pain-the patient is on her way down to radiology for paracentesis. I have ordered cell count, Gram stain and culture as well as chemistries. Free fluid in pelvis-continue antibiotic therapy at this time Left ovarian cyst-await results of paracentesis to see if this was a possible hemorrhagic cyst versus ruptured ovarian cyst. Anemia-hemoglobin is down to 8.0 from 10.8. This would suggest possible hemorrhagic cyst. Iron studies reveal a serum iron of 34.3 with TIBC 321, percent saturation 11 and ferritin of 40. Will recheck CBC in the morning. No reason for transfusion at this time. Menorrhagia-certainly could be contributing to the anemia. No acute intervention at this time. Hypothyroidism-TSH is elevated. I will check free T3 and free T4. Tachycardia-resume labetalol 100 mg twice daily 04/13/2020 Abdominal pain: Paracentesis performed yesterday. Fluid RBC of 5,232,500. -Patient is followed by Dr. Thomas, [facility]. Recommends diagnostic laparoscopy with evacuation of hemoperitoneum and possible removal of left ovarian cyst/control of bleeding. -Patient is followed by surgery. Agreeing to [facility] treatment plan. Free fluid in pelvis: Found to be laz blood on paracentesis. -Peritoneal Gram stain with no growth in 24 hours. Continue with Unasyn. Consider discontinue if no growth in 48 hours. -Treatment as stated above. Left ovarian Cyst: Treatment pending results of diagnostic laparoscopy. Anemia: Hemoglobin continues to trend downward 8.0 ->7.6.Suggestive of possible hemorrhagic cyst. -Repeat CBC with hemoglobin 7.8. Transfusion not indicated at this time. -Iron studies significant for low iron with normal TIBC and ferritin. Consider iron supplementation upon discharge. -Continue to monitor with repeat CBC in the morning. Menorrhagia: Contributing to the anemia. -No acute intervention at this time. Subacute hypothyroidism: TSH is elevated (6.43), free T4 and free T3 within normal limits. -No intervention indicated at this time. Tachycardia: Heart rate continues to be in the 100s. -Continue with labetalol. -May utilize Lopressor if heart rate greater than 120. -Continue to monitor, expect to see improvement with current treatment regimen. Positive group A strep rapid: As noted in the ED. -Currently on Unasyn for intra-abdominal coverage (see above). This provides coverage for group A strep. -We will change antibiotic regimen pending peritoneal fluid growth. 04/14/2020 Abdominal pain: day 0 s/p diagnostic/therapeutic laparoscopy hemoperitoneum of unknown cause. Suspect ruptured left ovarian cyst vs omental bleed. No active bleeding was identified. Followed Dr. Andujar, surgery, and Dr. Thomas, OBGYN; notes were reviewed in detail. Patient is stable. She is ambulating and has passed gas. She is tolerating PO intake w/o complaints. Will continue with liquid diet today, per surgeries recommendations. Plan to advance diet in the a.m. Leukocytosis: WBC 12.0. Suspect secondary to recenty surgery. Repeat CBC in a.m. Free fluid in pelvis: An additional 500 cc of blood evacuated yesterday. Peritoneal fluid culture with no growth in 48 hours. We will discontinue Unasyn at this time. Left ovarian cyst: Possibly the source of bleeding, though no active bleeding was identified. She is to follow-up in the [facility] office in 2 weeks after discharge. Anemia: 7.8 -> 8.2, suggesting no acute bleed at this time. Repeat CBC in the morning. Iron and vitamin C supplementation initiated. If CBC stabilizes will advance diet and discharge. Menorrhagia: Certainly may be a factor in her anemia. [facility] end of February. Serum HCG 04/11/2020 negative. Subacute hypothyroidism: TSH (6.43), FT4 and FT3 within normal limits. Pt reports FMHx hypothyroidsm. Recommend f/u with PCP, otherwise no intervention indicated at this time. Tachycardia: HR in low 100s despite home dose labetaolol 100mg BID. Suspect secondary to anemia. Continue with labetalol. Continue to monitor with tele. Monitor VS. Positive Group A Strep rapid: She has received 4 days Unasyn treatment. Discontinue. Initiate further treatment with Penicillin V 500mg. Leukocytosis: Suspect secondary to surgery. Follow up CBC in the a.m. - Additional Information Resuscitation Status: Full Code Discharge Diet: Regular Discharge Activity: Activity As Tolerated, No Lifting Over 10 Pounds, No Lifting/Push/Pulling, Pelvic Rest, Walk Frequently Referrals: SANTOSH MANLEY PA-C [Primary Care Provider] - Follow up as needed (left message on voice machine for appt. 04-14-20 @ 1143. [facility]) LINDSAY THOMAS MD [ACTIVE PROVISIONAL STAFF] - (7-10 days) Prescriptions: Docusate Sodium [Colace] 100 mg PO DAILY 30 Days #30 capsule Ferrous Sulfate [Feosol 325 mg Tablet] 325 mg PO BIDPCBS 30 Days #60 tablet Ibuprofen [Ibu] 800 mg PO Q8 10 Days #30 tablet Penicillin V Potassium [Penicillin Vk 500 mg Tablet] 500 mg PO Q12A #11 tablet Oxycodone HCl/Acetaminophen [Percocet 5-325 mg Tablet] 1 tab PO Q4HP PRN 4 Days #20 tablet PRN Reason: Norelgestromin/Ethin.estradiol [Xulane Patch] 1 each TD Q7D 28 Days #3 patch Home Medications: Acetaminophen [Tylenol 325 mg Tablet] 650 mg PO Q4HP PRN tablet 04/14/20 Docusate Sodium [Colace] 100 mg PO DAILY 30 Days #30 capsule 04/14/20 Ferrous Sulfate [Feosol 325 mg Tablet] 325 mg PO BIDPCBS 30 Days #60 tablet 04/14/20 Ibuprofen [Ibu] 800 mg PO Q8 10 Days #30 tablet 04/14/20 Norelgestromin/Ethin.estradiol [Xulane Patch] 1 each TD Q7D 28 Days #3 patch 04/14/20 Oxycodone HCl/Acetaminophen [Percocet 5-325 mg Tablet] 1 tab PO Q4HP PRN 4 Days #20 tablet 04/14/20 Penicillin V Potassium [Penicillin Vk 500 mg Tablet] 500 mg PO Q12A #11 tablet 04/16/20 History of Present Illiness History of Present Illness: KENDRICK MOORE is a 24 year old female who presents to the emergency room with a 2 day history of abdominal pain. She admits gradually worsening sharp stabbing abdominal pain with radiation to her left flank/lower back. Her pain is most intense in the left lower quadrant, is now severe, is improved by sitting up or lying in the position, and is made worse by lying flat or movement/walking. Her abdominal pain has been accompanied by nausea with a decreased appetite and associated with a progressively worsening sore throat, ab dominal bloating, malaise, generalized weakness and lightheadedness. She denies other associated or accompanying signs and symptoms. She denies prior similar episodes. She has not identified any additional aggravating or ameliorating factors for her abdominal pain. In the emergency room she was found to have a positive rapid strep screen with a leukocytosis of 20,000+ and splenomegaly. She was seen in consultation in the emergency room by the surgical team who recommended admission for further observation and evaluation. Hospital Course Hospital Course: She was treated for her strep throat with IV antibiotics, and whenever she was able to swallow a little bit better she was transitioned over to oral penicillin, which she will complete at home for a total of 10 days of treatment. She was seen and evaluated by surgery and OB for a ruptured ovarian cyst that led to hemoperitoneum. She underwent laparoscopic evacuation of the hemoperitoneum. She was still having some pain and discomfort afterwards but it was felt like this was mostly inflammatory in nature and it was improved by the time she was discharged. She was eating and drinking, ambulating and passing gas. She will follow-up with OB in the office in 7 to 10 days. She was given instructions for bathing and wound care. Her labs and examination were reassuring and she was discharged in stable condition. Physical Exam Vital Signs: Temp Pulse Resp BP Pulse Ox 97.9 F 94 18 116/87 H 100 04/16/20 11:47 04/16/20 11:47 04/16/20 11:47 04/16/20 11:47 04/16/20 11:47 Intake & Output 04/15/20 04/16/20 04/17/20 06:59 06:59 06:59 Intake Total 2877 1660 120 Balance 2877 1660 120 Weight 76.2 kg 74.6 kg General appearance: PRESENT: no acute distress, cooperative, well-developed Head exam: PRESENT: atraumatic, normocephalic Eye exam: PRESENT: EOMI, PERRLA. ABSENT: conjunctiva pale Ear exam: PRESENT: normal external ear exam Mouth exam: PRESENT: moist, tongue midline Throat exam: PRESENT: tonsillar erythema - Minimal Neck exam: PRESENT: full ROM. ABSENT: lymphadenopathy, tenderness, thyromegaly Respiratory exam: PRESENT: clear to auscultation leola, symmetrical, unlabored. ABSENT: crackles, tachypnea Cardiovascular exam: PRESENT: RRR, +S1, +S2. ABSENT: diastolic murmur, systolic murmur GI/Abdominal exam: PRESENT: Mildly distended, soft, tenderness - diffusely appropriate, normal bowel sounds, other - Surgical incisions are clean, dry and intact. Without drainage. Rectal exam: PRESENT: deferred Extremities exam: PRESENT: full ROM. ABSENT: clubbing, pedal edema, tenderness Musculoskeletal exam: PRESENT: ambulatory, full ROM. ABSENT: deformity, dislocation Neurological exam: PRESENT: alert, awake, oriented to person, oriented to place, oriented to time, oriented to situation, CN II-XII grossly intact. Results Laboratory Results: WBC 8.1 10^3/uL (4.0-10.5) 04/15/20 06:03 RBC 2.68 10^6/uL (3.72-5.28) L 04/15/20 06:03 Hgb 8.0 g/dL (12.0-15.5) L 04/15/20 06:03 Hct 22.8 % (36.0-47.0) L 04/15/20 06:03 MCV 85 fl (80-97) 04/15/20 06:03 MCH 30.1 pg (27.0-33.4) 04/15/20 06:03 MCHC 35.3 g/dL (32.0-36.0) 04/15/20 06:03 RDW 14.0 % (11.5-14.0) 04/15/20 06:03 Plt Count 289 10^3/uL (150-450) 04/15/20 06:03 Lymph % (Auto) 32.1 % (13-45) 04/15/20 06:03 Morrison % (Auto) 5.5 % (3-13) 04/15/20 06:03 Eos % (Auto) 2.2 % (0-6) 04/15/20 06:03 Baso % (Auto) 0.5 % (0-2) 04/15/20 06:03 Reticulocyte # 0.056 10^6/uL (0.028-0.122) 04/11/20 12:13 Absolute Neuts (auto) 4.8 10^3/uL (1.7-8.2) 04/15/20 06:03 Absolute Lymphs (auto) 2.6 10^3/uL (0.5-4.7) 04/15/20 06:03 Absolute Monos (auto) 0.4 10^3/uL (0.1-1.4) 04/15/20 06:03 Absolute Eos (auto) 0.2 10^3/uL (0.0-0.6) 04/15/20 06:03 Absolute Basos (auto) 0.0 10^3/uL (0.0-0.2) 04/15/20 06:03 Seg Neutrophils % 59.7 % (42-78) 04/15/20 06:03 Retic Count (auto) 1.49 % (0.66-2.85) 04/11/20 12:13 VBG pH 7.35 (7.30-7.42) 04/11/20 13:05 VBG pCO2 39.9 mmHg (35-63) 04/11/20 13:05 VBG HCO3 21.6 mmol/L (20-32) 04/11/20 13:05 VBG Base Excess -3.6 mmol/L 04/11/20 13:05 Sodium 141.1 mmol/L (137-145) 04/15/20 06:03 Potassium 3.6 mmol/L (3.6-5.0) 04/15/20 06:03 Chloride 106 mmol/L (98-107) 04/15/20 06:03 Carbon Dioxide 26 mmol/L (22-30) 04/15/20 06:03 Anion Gap 9 (5-19) 04/15/20 06:03 BUN 6 mg/dL (7-20) L 04/15/20 06:03 Creatinine 0.61 mg/dL (0.52-1.25) 04/15/20 06:03 Est GFR ( Amer) > 60 (>60) 04/15/20 06:03 Est GFR (MDRD) Non-Af > 60 (>60) 04/15/20 06:03 Glucose 77 mg/dL (75-110) 04/15/20 06:03 Hemoglobin A1c % 4.9 % (4.7-6.0) 04/14/20 06:06 Calcium 8.5 mg/dL (8.4-10.2) 04/15/20 06:03 Magnesium 2.1 mg/dL (1.6-2.3) 04/12/20 05:55 Iron 34.3 ug/dL (37-170) L 04/11/20 12:13 TIBC 321 ug/dL (250-450) 04/11/20 12:13 % Saturation 11 % 04/11/20 12:13 Ferritin 40.00 ng/mL (6.2-137.0) 04/11/20 12:13 Total Bilirubin 0.4 mg/dL (0.2-1.3) 04/12/20 05:55 Direct Bilirubin 0.2 mg/dL (0.0-0.4) 04/12/20 05:55 Neonat Total Bilirubin Not Reportable 04/12/20 05:55 Neonat Direct Bilirubin Not Reportable 04/12/20 05:55 Neonat Indirect Bili Not Reportable 04/12/20 05:55 AST 17 U/L (14-36) 04/12/20 05:55 ALT 16 U/L (<35) 04/12/20 05:55 Alkaline Phosphatase 53 U/L (38-126) 04/12/20 05:55 Total Protein 5.6 g/dL (6.3-8.2) L 04/12/20 05:55 Albumin 3.3 g/dL (3.5-5.0) L 04/12/20 05:55 Lipase 43.0 U/L (23-300) 04/11/20 12:13 Vitamin B12 765.0 pg/mL (239-931) 04/11/20 12:13 Folate 6.20 ng/mL (>2.76) 04/11/20 12:13 TSH 6.43 uIU/mL (0.47-4.68) H 04/12/20 05:55 Free T4 1.08 ng/dL (0.78-2.19) 04/13/20 06:54 Free T3 pg/mL 3.68 pg/mL (2.77-5.27) 04/13/20 06:54 Serum HCG, Qual NEGATIVE (NEGATIVE) 04/11/20 12:13 Beta HCG, Quant Cancelled 04/11/20 12:13 Total Beta HCG Cancelled 04/11/20 12:13 Urine Color CARRIE 04/11/20 12:13 Urine Appearance CLOUDY 04/11/20 12:13 Urine pH 5.0 (5.0-9.0) 04/11/20 12:13 Ur Specific [place] 1.027 04/11/20 12:13 Urine Protein 100 mg/dL (NEGATIVE) H 04/11/20 12:13 Urine Glucose (UA) NEGATIVE mg/dL (NEGATIVE) 04/11/20 12:13 Urine Ketones TRACE mg/dL (NEGATIVE) H 04/11/20 12:13 Urine Blood NEGATIVE (NEGATIVE) 04/11/20 12:13 Urine Nitrite NEGATIVE (NEGATIVE) 04/11/20 12:13 Urine Bilirubin NEGATIVE (NEGATIVE) 04/11/20 12:13 Urine Urobilinogen 2.0 mg/dL (<2.0) H 04/11/20 12:13 Ur Leukocyte Esterase TRACE (NEGATIVE) H 04/11/20 12:13 Urine WBC (Auto) 16 /HPF 04/11/20 12:13 Urine RBC (Auto) 2 /HPF 04/11/20 12:13 U Hyaline Cast (Auto) 14 /LPF 04/11/20 12:13 Urine Bacteria (Auto) TRACE /HPF 04/11/20 12:13 Squamous Epi Cells Auto 7 /HPF 04/11/20 12:13 Urine Mucus (Auto) MANY /LPF 04/11/20 12:13 Urine Ascorbic Acid 40 (NEGATIVE) H 04/11/20 12:13 Fluid Type PERITONEAL 04/12/20 13:40 Fluid Source ABDOMEN 04/12/20 13:40 Fluid Color RED 04/12/20 13:40 Fluid Appearance TURBID 04/12/20 13:40 Fluid Viscosity LIQUID 04/12/20 13:40 Fluid WBC 69943 /uL 04/12/20 13:40 Fluid RBC [id number] /uL 04/12/20 13:40 Fluid Seg Neutrophils 95 % 04/12/20 13:40 Fluid Lymphocytes 2 % 04/12/20 13:40 Fluid Monocytes 1 % 04/12/20 13:40 Fluid Eosinophils 2 % 04/12/20 13:40 Fluid Basophils 0 % 04/12/20 13:40 Monotest NEGATIVE (NEGATIVE) 04/11/20 12:13 Influenza A (Rapid) NEGATIVE (NEGATIVE) 04/11/20 13:05 Influenza B (Rapid) NEGATIVE (NEGATIVE) 04/11/20 13:05 SARS-CoV-2 (PCR) NEGATIVE (NEGATIVE) 04/13/20 13:15 Group A Strep Rapid POSITIVE (NEGATIVE) 04/11/20 13:05 Blood Type A POSITIVE 04/11/20 13:53 Blood Type Confirm A POSITIVE 04/13/20 17:58 Antibody Screen NEGATIVE 04/11/20 13:53 Crossmatch See Detail 04/11/20 13:53 Impressions: Abdomen/Pelvis CT 04/11/20 13:10 IMPRESSION: 1. Small amount of free intraperitoneal fluid ; the attenuation of the fluid in the pelvis measures 56 Hounsfield units suggesting that it is complex and perhaps hemorrhagic. 2. 2.6 x 1.9 cm ovoid cystic lesion in the left adnexum with a thin high attenuation/enhancing rim (image 67 of series 3). 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 Consider correlation with an pelvic transvaginal US. 3. Unable to identify the appendix. Transvaginal US 04/11/20 14:04 IMPRESSION: Enlarged left ovary with dominant left ovarian cyst. Complex free fluid in the left adnexa and pelvic cul-de-sac. Findings may represent a recently ruptured hemorrhagic ovarian follicle. No definite left ovarian mass is identified. No evidence of ovarian torsion. A follow-up pelvic ultrasound in 4- 6 weeks is recommended to confirm resolution of the left ovarian cyst. Abdomen Ultrasound 04/12/20 00:00 IMPRESSION: No window for safe paracentesis under ultrasound guidance. Guidance Needle Placement CT 04/12/20 00:00 IMPRESSION: SUCCESSFUL CT GUIDED PARACENTESIS. Retroperitoneal Abscess Drainage 04/12/20 00:00 IMPRESSION: SUCCESSFUL CT GUIDED PARACENTESIS. Plan Time Spent: Greater than 30 Minutes Stroke Is this a Stroke Patient?: No Acute Heart Failure Is this a Heart Failure Patient?: No
== END 2020-04-16 16:12 | disposition home or self-care (01) | DRG 356 ==
LOC: ER 11:12 → EH 18:32 → 3S 20:48
PROVIDERS: ADMIT Emergency Medicine; ATTEND Family Medicine
PROC: 0W9G3ZX Drainage of Peritoneal Cavity, Percutaneous Approach, Diagnostic (ICD-10-PCS; 2020-04-12)
PROC: 30233N1 Transfusion of Nonautologous Red Blood Cells into Peripheral Vein, Percutaneous Approach (ICD-10-PCS; 2020-04-13)
PROC: 0WCG0ZZ Extirpation of Matter from Peritoneal Cavity, Open Approach (ICD-10-PCS; principal; 2020-04-13 19:15)
PROC: 3E02340 Introduction of Influenza Vaccine into Muscle, Percutaneous Approach (ICD-10-PCS; 2020-04-16)
DX: K66.1 Hemoperitoneum (principal); K65.0 Generalized (acute) peritonitis; J02.0 Streptococcal pharyngitis; Z20.828 Contact with and (suspected) exposure to other viral communicable diseases; I10 Essential (primary) hypertension; N92.0 Excessive and frequent menstruation with regular cycle; Z60.2 Problems related to living alone; D50.0 Iron deficiency anemia secondary to blood loss (chronic); N83.292 Other ovarian cyst, left side; N83.291 Other ovarian cyst, right side; E02 Subclinical iodine-deficiency hypothyroidism; R00.0 Tachycardia, unspecified; Z23 Encounter for immunization; Z79.899 Other long term (current) drug therapy; Z88.3 Allergy status to other anti-infective agents; Z82.49 Family history of ischemic heart disease and other diseases of the circulatory system; Z80.9 Family history of malignant neoplasm, unspecified
CPT/HCPCS: 36415; 49406; 74177; 76705; 76830; 77012; 790; 80048; 80053; 81001; 82607; 82728; 82746; 82803; 83036; 83540; 83550; 83690; 83735; 84439; 84443; 84481; 84703; 85025; 85045; 86308; 86850; 86900; 86901; 86920; 87070; 87075; 87205; 87635; 87804; 87880; 89050; 90686; 93005; 93010; 93976; 96365; 96375; 96376; 99140; 99285; C9803; J0131; J0295; J0330; J1100; J1170; J1644; J2250; J2270; J2405; J2543; J2704; J2710; J3010; J3490; J7050; J7120; J7121; S0028